=== PATIENT | male | born 1955 | race Caucasian/White ===

== ENCOUNTER 2018-03-12 06:39 | Day surgery (SDC) | payer OTHER, SELFPAY ==
--- NOTE | 2018-03-12 | PATH_ITS ---
[facility] Accession Number: [id number] . 01 Material submitted: . PART A: BIOPSY AT 65CM PART B: BIOPSY AT 25CM . 02 Diagnosis: A. Colon at 65 cm, Biopsy: Hyperplastic polyp. . B. Colon at 25 cm, Biopsy: Hyperplastic polyp. V/03/13/2018 . 02 Electronically signed: . Jacek Hilario MD, PhD, Pathologist NPI- [id number] . 01 Gross description: . Received two formalin-filled containers, both labeled with the patient's name: . A. In a container labeled BX at 65 cm, are three fragments of colmenares, soft tissue which range in size from 0.1 x 0.1 x 0.1 cm to 0.2 x 0.2 x 0.2 cm. All fragments are totally submitted in cassette A. B. In a container labeled BX at 25 cm, are two fragments of colmenares, soft tissue which range in size from less than 0.1 cm to 0.2 x 0.2 x 0.2 cm. All fragments are totally submitted in cassette B. ([id number]) /FRR . 02 Pathologist provided ICD-10: K63.5 . 02 CPT . 507674, [id number] Performed at: 01 [facility] [address], [place], [place] [id number] MD Dionicio Aleman MD Phone: [phone] Performed at: 02 [facility] [address] [place], [place] [id number] MD Chloe Mohan MD Phone: [phone]
[2018-03-12 07:10] VITALS: BMI 23.2
[2018-03-12] MEDS: SODIUM CHLORIDE 0.9% 1,000 ML 100 ML IV (07:10)
[2018-03-12 07:15] VITALS: BP 134/90; PULSE 74; RESP 20; TEMP 36.4; O2SAT 100
--- NOTE | 2018-03-12 08:15 | PM.HP.1 ---
History of Present Illness Date Patient Seen: 03/12/18 Time Patient Seen: 08:06 Chief complaint: colonoscopy [id number] Narrative: The patient is gentleman here for screening colonoscopy. Last exam was 10 years ago. No family history of colon cancer. Patient History Family & Social History Family History: Reviewed 03/12/18 by Scot Montemayor MD Social History: household members spouse Meds Home Medications Medication Instructions Recorded Confirmed Type bupropion HCl 75 mg PO QAM 03/12/18 03/12/18 History famotidine [Pepcid] 20 mg PO QAM 03/12/18 03/12/18 History omeprazole magnesium [Prilosec OTC] 20 mg PO DAILY 03/12/18 03/12/18 History Allergies Allergy/AdvReac Type Severity Reaction Status Date / Time Penicillins AdvReac Unknown Verified 03/12/18 07:52 Sulfa (Sulfonamide AdvReac Unknown Verified 03/12/18 07:52 Antibiotics) Review of Systems Review of Systems All systems reviewed & are unremarkable except as noted in HPI and below Exam Vital Signs (past 8 hours): - 03/12/18 07:15 Temperature 97.6 F Pulse Rate 74 Respiratory Rate 20 Blood Pressure 134/90 Pulse Oximetry 100 Oxygen Delivery Method Room Air Narrative Exam Narrative: No apparent distress. Lungs are clear no rales rhonchi . heart regular rate and rhythm no murmur gallop. abdomen is soft nontender without mass. Alert and oriented x3. Assessment & Plan Plan: Assessment/Plan Narrative: For screening colonoscopy. I have discussed the procedure and the rationale with the patient including risks of bleeding, perforation which would necessitate a major operation, failure to find remove all lesions and the potential to tattoo. They appeared to understand and wished to proceed.
--- NOTE | 2018-03-12 08:16 | PM.PREOP ---
Pre-operative Note Interval Note History & Physical reviewed/Exam performed by Physician: Yes Changes to H&P: No ASA Class (for procedural sedation): I
[2018-03-12] MEDS: fentaNYL 250 MCG/5 ML INJ IV (08:23)
[2018-03-12] MEDS: MIDAZOLAM 5 MG/5 ML VIAL IV (08:27)
--- NOTE | 2018-03-12 08:51 | PM.OP.ENDO ---
Operative Date/Time/Diagnoses Date of procedure: 03/12/18 Time of procedure: 08:51 Pre-op diagnosis: Screening exam Post-op diagnosis: other (Two small polyps. One at 65 cm and 1 at 25 cm. Rather large prostate) Procedure & Clinicians Study performed: Colonoscopy with cold biopsies Same procedure as scheduled: Yes Indications: Screening Surgeon: Scot Montemayor Procedure Notes SCOAP/Timeout: Performed Procedure in detail: The patient was placed in the left lateral decubitus position and underwent IV sedation directed by the surgeon consisting of fentanyl and Versed. Digital exam was remarkable for rather large prostate without dominant mass. Sphincter tone was slightly increased. The scope was inserted and advanced through the rectum into the sigmoid, descending, transverse, and ascending colon. No lesions including diverticuli were seen. The cecum was reached identified by the ileocecal valve and the appendiceal opening. The ileocecal valve was successfully cannulated. The terminal ileum was normal in appearance. The scope was gradually brought out. Two small Polyps were found. 1 was 65 cm from the anal verge and 1 was 25 cm from the anal verge. Both were biopsied and appeared to be completely removed.. The scope ultimately was retroflexed in the rectum. The appearance was remarkable for some minor scarring. The scope was removed and the patient tolerated the procedure well. Prep was good. Scope withdrawal time: Nine and 0.5 min Sedation minutes: 23 Findings: polyp (Two small) and other findings (Large prostate) Specimen(s): other (Polyps) Complications: none Recommendations: Colonscopy in 5 years (Unless these polyps are not neoplastic. In that case 10 years would be more appropriate.) Follow up: as needed Disposition: same day surgery
[2018-03-12 08:54] VITALS: BP 116/71; PULSE 78; RESP 16; TEMP 36.5; O2SAT 99
[2018-03-12 09:10] VITALS: BP 110/70; PULSE 78; RESP 16; TEMP 36.4; O2SAT 100
== END 2018-03-12 09:15 | disposition home or self-care (01) ==
PROVIDERS: Family Provider Family Medicine; PCP Family Medicine; Visit Provider Specialist
PROC: 0DJD8ZZ Inspection of Lower Intestinal Tract, Via Natural or Artificial Opening Endoscopic (ICD-10-PCS; CPT 45378; principal; 2018-03-12 07:45)
DX: Z12.11 Encounter for screening for malignant neoplasm of colon (principal); N40.0 Benign prostatic hyperplasia without lower urinary tract symptoms; K63.5 Polyp of colon
CPT/HCPCS: 45380; 99152; 99153; J2250; J3010

== ENCOUNTER 2021-03-07 12:15 | Outpatient (RCR) | payer OTHER, SELFPAY ==
--- NOTE | 2021-01-10 15:46 | PT.OIE ---
Current Diagnoses Pain in right shoulder (01/10/21) Visit Care Team Role Provider Type Waylon Morris MD Attending Provider Physician Family Provider Primary Care Provider Referring Provider Specialty: Family Practice Address: [address] [place], [address] Email: [email or web address] Physical Therapy Initial Evaluation PT-OP-A Visit Information Start: 01/06/21 16:14 Freq: Status: Active Protocol: Document 01/10/21 13:05 MB (Rec: 01/10/21 13:15 MB [id number]) Out-Patient Physical Therapy Visit Information Visit Information Visit Type Initial Evaluation Visit Note Mcguire 25 visits per year Visit Start Time 13:05 Visit Stop Time 13:39 Total Visit Minutes 34 Visit Number 1 Evaluation Information Evaluation Date 01/10/21 PT-OP-B Current Condition Start: 01/06/21 16:14 Freq: Status: Active Protocol: Document 01/10/21 13:05 MB (Rec: 01/10/21 13:15 MB [id number]) Current Condition History of Current Condition Onset Date May 2020 Current Complaints Pain in right shoulder with some movements and pain with sleeping History of Current Condition In May, pt reached back to do something with 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 He has had progressive decreasing ROM in his right shoulder as well as some decreasing strength. He is right-handed. He is favoring the arm. He is taking oral pain medication as prescribed by the doctor and using Voltaren at morning and at night. He has pain with reaching behind and up over his head. He points to right AC joint. He cannot sleep on his right side. He is sleeping on his back and left side. Pt rates pain as 4+/10 in his right shoulder. Pt has a history of torn meniscus right knee and surgery 10 years ago. He had PT for back pain 10 years ago. Pt reports two episodes of pain in his right elbow since the injury. He denies numbness and tingling. Treatment Goals Patient/Caregiver Goals To decrease pain and to improve right arm use and ROM PT-OP-C Subjective Start: 01/06/21 16:14 Freq: Status: Active Protocol: Document 01/10/21 13:05 MB (Rec: 01/10/21 13:15 MB [id number]) OP-PT Subjective Patient Comments Patient Comments See history of current condition Patient Questionnaires Quick Dash- Upper Extremity Quick Dash UE Score 26 Quick Dash UE Impairment 20 to 39% Impaired (Score 20- 39) PT-OP-J Posture/Palpation/Skin Start: 01/06/21 16:14 Freq: Status: Active Protocol: Document 01/10/21 13:05 MB (Rec: 01/10/21 15:45 MB [id number]) Posture Evaluation Comments Posture Comments Standing posture with shoes on : forward head, cervical extension position in standing , Dowager's hump, elevated shoulders, decreased thoracic kyphosis, left shoulder higher than the right and left SC joint also higher than the right, right scapula lower than the left, increased varus LEs, iliac crests grossly level. PT-OP-K Range of Motion Start: 01/06/21 16:14 Freq: Status: Active Protocol: Document 01/10/21 13:05 MB (Rec: 01/10/21 15:45 MB [id number]) Cervical Spine Range of Motion Cervical Spine Active Testing Position Standing Flexion 35 Extension 30 Rotation Left 60 Rotation Right 50 Lateral Flexion Left 20 Lateral Flexion Right 20 Shoulder Goniometric Range of Motion Shoulder Left Shoulder ROM WFL Yes Testing Position Standing Flexion 140 Extension 61 Abduction 155 Internal Rotation Behind Back (text) To T5 Comments PROM in supine with left shoulder in 90/90: limited ER to 80 deg and IR to 50 deg at least Right Shoulder ROM WFL No Testing Position Standing Flexion 130 Extension 54 Abduction 140 Internal Rotation Behind Back (text) To S1 Comments PROM in supine with right shoulder in 80 deg abduction, pt states, stop before PT can reach end-feel end-range for ER and IR and ER is 30 deg and IR is 25 deg PT-OP-M Strength Start: 01/06/21 16:14 Freq: Status: Active Protocol: Document 01/10/21 13:05 MB (Rec: 01/10/21 15:45 MB [id number]) Shoulder Strength Shoulder Manual Muscle Testing Left Flexion 5 Normal Abduction (C5) 5 Normal External Rotation 5 Normal Internal Rotation 5 Normal Right Comments Painful and guarded AROM and so MMT right shoulder deferred Elbow/Forearm Strength Elbow and Forearm Manual Muscle Testing Bilateral Flexion (C6) 5 Normal Extension (C7) 5 Normal Pronation 5 Normal Supination 5 Normal PT-OP-Q Treatments Start: 01/06/21 16:14 Freq: Status: Active Protocol: Document 01/10/21 13:05 MB (Rec: 01/10/21 13:45 MB [id number]) Self-Care/Home Management Treatment Education Patient Education Body Mechanics,Joint Protection,Pain Management, Posture Other Education Proper sleeping position with cervical support from towel roll at neck to unweight shoulder, pillow support between arms and to stop putting hands up under pillow, talk with pharmacist about how often he should be taking oral NSAID and Voltaren PT-OP-T Assessment and Plan Start: 01/06/21 16:14 Freq: Status: Active Protocol: Document 01/10/21 13:05 MB (Rec: 01/10/21 15:45 MB [id number]) Physical Therapy Assessment Rehab Potential Rehabilitation Potential Good Evaluation Complexity Number of Personal Factors/Comorbidities 1-2 Number of Body Systems Impaired 1-2 Clinical Presentation at Evaluation Evolving Impairments Impairments Activity Tolerance,Functional Activities,Functional Mobility ,Pain,Posture,ROM,Soft Tissue Mobility,Strength Other Impairments Personal factors include guarding behavior during assessment. Body systems affected include musculoskeletal and neuromuscular. Goals 5 Tooth Clerk Goal (LTG) Pt will report a 75% improvement in sleeping to improve restorative rest by . LTG Duration 8 weeks 4 Mcc Goal (LTG) Pt will present with active right shoulder IR to at least T8 to improve donning and doffiing of jacket by 03/12/21. LTG Duration 8 weeks 3 Mcc Goal (LTG) Pt will present with AROM right shoulder flexion and abduction similiar to the left to improve reaching overhead by 03/12/21. LTG Duration 8 weeks 2 Tooth Clerk Goal (LTG) Pt will perform progressive HEP with I including range of motion, postural exercises, self-massage, breathing, flexibility and strengthening exercises to decrease pain and improve right arm function by 03/12/21. LTG Duration 8 weeks 1 Impairment QuickDASH score reflects 34.09 % impairment Tooth Clerk Goal (LTG) Pt will present with an improved QuickDASH score to reflect no more than 10% impairment to improve function and quality of life by . LTG Duration 8 weeks Assessment Summary Assessment Pt is a 65 y/o male presenting with reports of right shoulder pain and he points to superolateral humerus with reaching overhead and IR. 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 Pt presents with decreased AROM, PROM and strength today. He guards passive movement by PT. Overall, PT's initial impression is a capsular-type problem. He will benefit from PT to improve range, strength, pain and function. Physical Therapy Plan Frequency and Duration Frequency of Treatment 2x/Week Duration of Treatment 8 weeks Plan of Care Start Date 01/10/21 Plan of Care End Date 03/12/21 Therapeutic Interventions Therapeutic Interventions Aquatic Therapy,Canalithic Repositioning,Home Exercise Program,Joint Mobilizations, Manual Therapy,Neuromuscular Re-education,Patient/Caregiver Education,Self-Care/Home Management,Soft Tissue Mobilization,Taping, Therapeutic Activities, Therapeutic Exercises Modalities Cold Pack/Ice Massage,Hot Packs,Ultrasound Next Visit Focus/Plan Next Note Type Treatment Note Next Visit Plan Racquet ball massage and [place] Protocol
--- NOTE | 2021-01-10 15:46 | PT.OPPOC ---
Physical, Occupational & Speech Therapy At [facility] Current Diagnoses Pain in right shoulder (01/10/21) Visit Care Team Role Provider Type Waylon Morris MD Attending Provider Physician Family Provider Primary Care Provider Referring Provider Specialty: Family Practice [address]: [place], [address] Email: [email or web address] Plan Of Care PT-OP-T Assessment and Plan Start: 01/06/21 16:14 Freq: Status: Active Protocol: Document 01/10/21 13:05 MB (Rec: 01/10/21 15:45 MB [id number]) Physical Therapy Assessment Rehab Potential Rehabilitation Potential Good Evaluation Complexity Number of Personal Factors/Comorbidities 1-2 Number of Body Systems Impaired 1-2 Clinical Presentation at Evaluation Evolving Impairments Impairments Activity Tolerance,Functional Activities,Functional Mobility ,Pain,Posture,ROM,Soft Tissue Mobility,Strength Other Impairments Personal factors include guarding behavior during assessment. Body systems affected include musculoskeletal and neuromuscular. Goals 5 Intermediate Goal (LTG) Pt will report a 75% improvement in sleeping to improve restorative rest by . LTG Duration 8 weeks 4 Logging Superintendent Goal (LTG) Pt will present with active right shoulder IR to at least T8 to improve donning and doffiing of jacket by 03/12/21. LTG Duration 8 weeks 3 Logging Superintendent Goal (LTG) Pt will present with AROM right shoulder flexion and abduction similiar to the left to improve reaching overhead by 03/12/21. LTG Duration 8 weeks 2 Intermediate Goal (LTG) Pt will perform progressive HEP with I including range of motion, postural exercises, self-massage, breathing, flexibility and strengthening exercises to decrease pain and improve right arm function by 03/12/21. LTG Duration 8 weeks 1 Impairment QuickDASH score reflects 34.09 % impairment Intermediate Goal (LTG) Pt will present with an improved QuickDASH score to reflect no more than 10% impairment to improve function and quality of life by . LTG Duration 8 weeks Assessment Summary Assessment Pt is a 65 y/o male presenting with reports of right shoulder pain and he points to superolateral humerus with reaching overhead and IR. 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 Pt presents with decreased AROM, PROM and strength today. He guards passive movement by PT. Overall, PT's initial impression is a capsular-type problem. He will benefit from PT to improve range, strength, pain and function. Physical Therapy Plan Frequency and Duration Frequency of Treatment 2x/Week Duration of Treatment 8 weeks Plan of Care Start Date 01/10/21 Plan of Care End Date 03/12/21 Therapeutic Interventions Therapeutic Interventions Aquatic Therapy,Canalithic Repositioning,Home Exercise Program,Joint Mobilizations, Manual Therapy,Neuromuscular Re-education,Patient/Caregiver Education,Self-Care/Home Management,Soft Tissue Mobilization,Taping, Therapeutic Activities, Therapeutic Exercises Modalities Cold Pack/Ice Massage,Hot Packs,Ultrasound Next Visit Focus/Plan Next Note Type Treatment Note Next Visit Plan Racquet ball massage and [place] Protocol Plan of Care Dates Plan of Care Start Date 01/10/21 Plan of Care End Date 03/12/21 Electronically Signed by: Whitney Mckenna, PT 01/10/21 2005 Please Sign and Return: I have reviewed this Plan of Care and certify that the skilled therapy services above are required to meet the patient?s needs. Physician Signature Date Printed Name and Credentials Clinical Instructor Signature Printed Name and Credentials
--- NOTE | 2021-01-14 13:45 | PT.OTN ---
Current Diagnoses Pain in right shoulder (01/14/21) Physical Therapy Treatment Note PT-OP-A Visit Information Start: 01/06/21 16:14 Freq: Status: Active Protocol: Document 01/14/21 13:03 MB (Rec: 01/14/21 13:42 MB [id number]) Out-Patient Physical Therapy Visit Information Visit Information Visit Type Treatment Note Visit Note Mcgu[facility] 25 visits per year Visit Start Time 13:03 Visit Stop Time 13:45 Total Visit Minutes 42 Visit Number 2 Evaluation Information Evaluation Date 01/10/21 PT-OP-B Current Condition Start: 01/06/21 16:14 Freq: Status: Active Protocol: Document 01/10/21 13:05 MB (Rec: 01/10/21 13:15 MB [id number]) Current Condition History of Current Condition Onset Date May 2020 Current Complaints Pain in right shoulder with some movements and pain with sleeping History of Current Condition In May, pt reached back to do something with the 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 He has had progressive decreasing ROM in his right shoulder as well as some decreasing strength. He is right-handed. He is favoring the arm. He is taking oral pain medication as prescribed by the doctor and using Voltaren at morning and at night. He has pain with reaching behind and up over his head. He points to right AC joint. He cannot sleep on his right side. He is sleeping on his back and left side. Pt rates pain as 4+/10 in his right shoulder. Pt has a history of torn meniscus right knee and surgery 10 years ago. He had PT for back pain 10 years ago. Pt reports two episodes of pain in his right elbow since the injury. He denies numbness and tingling. Treatment Goals Patient/Caregiver Goals To decrease pain and to improve right arm use and ROM PT-OP-C Subjective Start: 01/06/21 16:14 Freq: Status: Active Protocol: Document 01/14/21 13:03 MB (Rec: 01/14/21 13:42 MB [id number]) OP-PT Subjective Patient Comments Patient Comments Pt asks PT if PT thinks he has a rotator cuff issue. 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 He might have gotten injection for it and then the orthopedist gave him some exercises that he did for a year and it got better. PT-OP-J Posture/Palpation/Skin Start: 01/06/21 16:14 Freq: Status: Active Protocol: Document 01/10/21 13:05 MB (Rec: 01/10/21 15:45 MB [id number]) Posture Evaluation Comments Posture Comments Standing posture with shoes on : forward head, cervical extension position in standing , Dowager's hump, elevated shoulders, decreased thoracic kyphosis, left shoulder higher than the right and left SC joint also higher than the right, right scapula lower than the left, increased varus LEs, iliac crests grossly level. PT-OP-K Range of Motion Start: 01/06/21 16:14 Freq: Status: Active Protocol: Document 01/10/21 13:05 MB (Rec: 01/10/21 15:45 MB [id number]) Cervical Spine Range of Motion Cervical Spine Active Testing Position Standing Flexion 35 Extension 30 Rotation Left 60 Rotation Right 50 Lateral Flexion Left 20 Lateral Flexion Right 20 Shoulder Goniometric Range of Motion Shoulder Left Shoulder ROM WFL Yes Testing Position Standing Flexion 140 Extension 61 Abduction 155 Internal Rotation Behind Back (text) To T5 Comments PROM in supine with left shoulder in 90/90: limited ER to 80 deg and IR to 50 deg at least Right Shoulder ROM WFL No Testing Position Standing Flexion 130 Extension 54 Abduction 140 Internal Rotation Behind Back (text) To S1 Comments PROM in supine with right shoulder in 80 deg abduction, pt states, stop before PT can reach end-feel end-range for ER and IR and ER is 30 deg and IR is 25 deg PT-OP-M Strength Start: 01/06/21 16:14 Freq: Status: Active Protocol: Document 01/10/21 13:05 MB (Rec: 01/10/21 15:45 MB [id number]) Shoulder Strength Shoulder Manual Muscle Testing Left Flexion 5 Normal Abduction (C5) 5 Normal External Rotation 5 Normal Internal Rotation 5 Normal Right Comments Painful and guarded AROM and so MMT right shoulder deferred Elbow/Forearm Strength Elbow and Forearm Manual Muscle Testing Bilateral Flexion (C6) 5 Normal Extension (C7) 5 Normal Pronation 5 Normal Supination 5 Normal PT-OP-Q Treatments Start: 01/06/21 16:14 Freq: Status: Active Protocol: Document 01/14/21 13:03 MB (Rec: 01/14/21 13:42 MB [id number]) Cardio Equipment Upper Body Ergometer (UBE) Duration (Minutes) 10 Other 1' forward and 1' backwards Therapeutic Exercises Standing Exercises Racquet ball massage Standing Exercise Name Intrascapular STM, infraspinatus MWM, upper traps MWM Side right PT-OP-T Assessment and Plan Start: 01/06/21 16:14 Freq: Status: Active Protocol: Document 01/14/21 13:03 MB (Rec: 01/14/21 13:42 MB [id number]) Physical Therapy Assessment Rehab Potential Rehabilitation Potential Good Evaluation Complexity Number of Personal Factors/Comorbidities 1-2 Number of Body Systems Impaired 1-2 Clinical Presentation at Evaluation Evolving Impairments Impairments Activity Tolerance,Functional Activities,Functional Mobility ,Pain,Posture,ROM,Soft Tissue Mobility,Strength Other Impairments Personal factors include guarding behavior during assessment. Body systems affected include musculoskeletal and neuromuscular. Goals 5 Chaplain Goal (LTG) Pt will report a 75% improvement in sleeping to improve restorative rest by . LTG Duration 8 weeks 4 Mcfp Goal (LTG) Pt will present with active right shoulder IR to at least T8 to improve donning and doffiing of jacket by 03/12/21. LTG Duration 8 weeks 3 Chaplain Goal (LTG) Pt will present with AROM right shoulder flexion and abduction similiar to the left to improve reaching overhead by 03/12/21. LTG Duration 8 weeks 2 Mcfp Goal (LTG) Pt will perform progressive HEP with I including range of motion, postural exercises, self-massage, breathing, flexibility and strengthening exercises to decrease pain and improve right arm function by 03/12/21. LTG Duration 8 weeks 1 Impairment QuickDASH score reflects 34.09 % impairment Chaplain Goal (LTG) Pt will present with an improved QuickDASH score to reflect no more than 10% impairment to improve function and quality of life by . LTG Duration 8 weeks Assessment Summary Assessment Pt does well with UBE and self -massage today. Will con't UBE next treatment date and start lying over pool noodle vs his foam roller that he will bring. PT will start [place] protocol in two treatment dates. Physical Therapy Plan Frequency and Duration Frequency of Treatment 2x/Week Duration of Treatment 8 weeks Plan of Care Start Date 01/10/21 Plan of Care End Date 03/12/21 Therapeutic Interventions Therapeutic Interventions Aquatic Therapy,Canalithic Repositioning,Home Exercise Program,Joint Mobilizations, Manual Therapy,Neuromuscular Re-education,Patient/Caregiver Education,Self-Care/Home Management,Soft Tissue Mobilization,Taping, Therapeutic Activities, Therapeutic Exercises Modalities Cold Pack/Ice Massage,Hot Packs,Ultrasound Next Visit Focus/Plan Next Note Type Treatment Note Next Visit Plan Please limit number of exercises, focus on quality and adding in slowly. UBE, progression will be lying over pool noodle (he will also bring in his own foam roller), pect stretch on pool noodle, AROM, posterior capsule stretch on pool noodle and open book [place] Protocol
--- NOTE | 2021-01-17 15:59 | PT.OTN ---
Addendum entered and electronically signed by Neva Sims PTA 01/17/21 16:05: Pt brought lrg noodle and same melendez full length foam roller. Instroduced noodle use today, and recommended to continue to bring to PT with handouts, can leave foam roller at home and can use PT dept's when progress to. Verbalized understanding. Original Note: Current Diagnoses Pain in right shoulder (01/17/21) Physical Therapy Treatment Note PT-OP-A Visit Information Start: 01/06/21 16:14 Freq: Status: Active Protocol: Document 01/17/21 12:15 ER (Rec: 01/17/21 13:00 ER [id number]) Out-Patient Physical Therapy Visit Information Visit Information Visit Type Treatment Note Visit Note [facility]LOE [facility] lead treatment and provided education under direct supervision and instruction of ANA Hooks. 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 He has had progressive decreasing ROM in his right shoulder as well as some decreasing strength. He is right-handed. He is favoring the arm. He is taking oral pain medication as prescribed by the doctor and using Voltaren at morning and at night. He has pain with reaching behind and up over his head. He points to right AC joint. He cannot sleep on his right side. He is sleeping on his back and left side. Pt rates pain as 4+/10 in his right shoulder. Pt has a history of torn meniscus right knee and surgery 10 years ago. He had PT for back pain 10 years ago. Pt reports two episodes of pain in his right elbow since the injury. He denies numbness and tingling. Treatment Goals Patient/Caregiver Goals To decrease pain and to improve right arm use and ROM PT-OP-C Subjective Start: 01/06/21 16:14 Freq: Status: Active Protocol: Document 01/17/21 12:15 ER (Rec: 01/17/21 13:00 ER [id number]) OP-PT Subjective Patient Comments Patient Comments Pt said he feels like therapy is working as he has had less pain at the end of R shld ROM. Still has pain at night in R shoulder from sleeping position, so doesn't sleep on his right side. Said that racquetball in sock has been helpful for self massage. PT-OP-J Posture/Palpation/Skin Start: 01/06/21 16:14 Freq: Status: Active Protocol: Document 01/10/21 13:05 MB (Rec: 01/10/21 15:45 MB [id number]) Posture Evaluation Comments Posture Comments Standing posture with shoes on : forward head, cervical extension position in standing , Dowager's hump, elevated shoulders, decreased thoracic kyphosis, left shoulder higher than the right and left SC joint also higher than the right, right scapula lower than the left, increased varus LEs, iliac crests grossly level. PT-OP-K Range of Motion Start: 01/06/21 16:14 Freq: Status: Active Protocol: Document 01/10/21 13:05 MB (Rec: 01/10/21 15:45 MB [id number]) Cervical Spine Range of Motion Cervical Spine Active Testing Position Standing Flexion 35 Extension 30 Rotation Left 60 Rotation Right 50 Lateral Flexion Left 20 Lateral Flexion Right 20 Shoulder Goniometric Range of Motion Shoulder Left Shoulder ROM WFL Yes Testing Position Standing Flexion 140 Extension 61 Abduction 155 Internal Rotation Behind Back (text) To T5 Comments PROM in supine with left shoulder in 90/90: limited ER to 80 deg and IR to 50 deg at least Right Shoulder ROM WFL No Testing Position Standing Flexion 130 Extension 54 Abduction 140 Internal Rotation Behind Back (text) To S1 Comments PROM in supine with right shoulder in 80 deg abduction, pt states, stop before PT can reach end-feel end-range for ER and IR and ER is 30 deg and IR is 25 deg PT-OP-M Strength Start: 01/06/21 16:14 Freq: Status: Active Protocol: Document 01/10/21 13:05 MB (Rec: 01/10/21 15:45 MB [id number]) Shoulder Strength Shoulder Manual Muscle Testing Left Flexion 5 Normal Abduction (C5) 5 Normal External Rotation 5 Normal Internal Rotation 5 Normal Right Comments Painful and guarded AROM and so MMT right shoulder deferred Elbow/Forearm Strength Elbow and Forearm Manual Muscle Testing Bilateral Flexion (C6) 5 Normal Extension (C7) 5 Normal Pronation 5 Normal Supination 5 Normal PT-OP-Q Treatments Start: 01/06/21 16:14 Freq: Status: Active Protocol: Document 01/17/21 12:15 ER (Rec: 01/17/21 13:00 ER [id number]) Cardio Equipment Upper Body Ergometer (UBE) Duration (Minutes) 10 RPM 50 Seat Position 12 Other 1' forward and 1' backwards Therapeutic Exercises Supine Exercises Pec Stretch Supine Exercise Name on pool noodle added to HEP Side bilateral Resistance AROM Equipment Used pool noodle Reps/Minutes 2 min T,W, half X Supine Exercise Name flexion, H ABD, W, half X, added to HEP Side bilateral Equipment Used pool noodle Reps/Minutes 10x ea Comments R shldr pain at end ROM flexion, HABD, adj to reduced range resolved pain Manual Therapy Treatment Soft Tissue Mobilization R Shoulder Body Location infraspinatus, posterior Delt, upper traps, pec minor, pec major, lats Mobilization Type Myofascial Release, Oscillations,Strumming, Sustained Pressure,Trigger Point Release Intensity/Depth Moderate Body Position Supine/ Sidelying Comments Pos deltoid, infraspinatus crossing GH joint location identified as a good spot by Pt. Palpated moderate tightness of musculature, but no areas of pressure produced pain. Pt reported shoulder felt looser post tx. Joint Mobilizations R shoulder Joint R GH Direction AP, PA, INF Grade II Body Position Supine Reps/Duration 10 min Comments Mobilized joint AP, PA, and INf with no pain PA and INF. Pt noted discomfort AP at end of ROM. Modified to less range and pain resolved. Pt expressed shoulder feeling looser post tx. PT-OP-T Assessment and Plan Start: 01/06/21 16:14 Freq: Status: Active Protocol: Document 01/17/21 12:15 ER (Rec: 01/17/21 13:00 ER [id number]) Physical Therapy Assessment Goals 5 Locomotive Electrician Goal (LTG) Pt will report a 75% improvement in sleeping to improve restorative rest by . LTG Duration 8 weeks 4 Residential Goal (LTG) Pt will present with active right shoulder IR to at least T8 to improve donning and doffiing of jacket by 03/12/21. LTG Duration 8 weeks 3 Locomotive Electrician Goal (LTG) Pt will present with AROM right shoulder flexion and abduction similiar to the left to improve reaching overhead by 03/12/21. LTG Duration 8 weeks 2 Residential Goal (LTG) Pt will perform progressive HEP with I including range of motion, postural exercises, self-massage, breathing, flexibility and strengthening exercises to decrease pain and improve right arm function by 03/12/21. LTG Duration 8 weeks 1 Impairment QuickDASH score reflects 34.09 % impairment Residential Goal (LTG) Pt will present with an improved QuickDASH score to reflect no more than 10% impairment to improve function and quality of life by . LTG Duration 8 weeks Assessment Summary Assessment Initiated pec stretch, I,T,W and half X ex on pool noodle on yoga mat on floor. Pt cued for UE positioning, TA engagement, but demonstrated good pacing and understanding of exercises. Noted ROM R<L of GH joint. Pt c/o discomfort at end of ROM R shoulder in all directions. Modified to less ROM and pain resolved. Pt responded well to manual therapy, with no GH pain noted except with a end of ROM AP Grade II glided. Adjusted depth of glide shallower and pain resolved. Pt reported shoulder felt looser post manual tx. Physical Therapy Plan Frequency and Duration Frequency of Treatment 2x/Week Duration of Treatment 8 weeks Plan of Care Start Date 01/10/21 Plan of Care End Date 03/12/21 Therapeutic Interventions Therapeutic Interventions Aquatic Therapy,Canalithic Repositioning,Home Exercise Program,Joint Mobilizations, Manual Therapy,Neuromuscular Re-education,Patient/Caregiver Education,Self-Care/Home Management,Soft Tissue Mobilization,Taping, Therapeutic Activities, Therapeutic Exercises Modalities Cold Pack/Ice Massage,Hot Packs,Ultrasound Next Visit Focus/Plan Next Note Type Treatment Note Next Visit Plan Review HEP. Progress as detailed below. Pt has same foam rollers as in clinic. Advised that he does not need to bring them in. Please limit number of exercises, focus on quality and adding in slowly. UBE, progression will be lying over pool noodle (he will also bring in his own foam roller), pect stretch on pool noodle, AROM, posterior capsule stretch on pool noodle and open book [place] Protocol
--- NOTE | 2021-01-19 13:44 | PT.OTN ---
Current Diagnoses Pain in right shoulder (01/19/21) Physical Therapy Treatment Note PT-OP-A Visit Information Start: 01/06/21 16:14 Freq: Status: Active Protocol: Document 01/19/21 12:58 MB (Rec: 01/19/21 13:44 MB [id number]) Out-Patient Physical Therapy Visit Information Visit Information Visit Type Treatment Note Visit Note [place] 25 visits per year Visit Start Time 12:58 Visit Stop Time 13:43 Total Visit Minutes 45 Visit Number 4 Number of STATISTICAL CONSULTANT Visits 0 PT-OP-B Current Condition Start: 01/06/21 16:14 Freq: Status: Active Protocol: Document 01/10/21 13:05 MB (Rec: 01/10/21 13:15 MB [id number]) Current Condition History of Current Condition Onset Date May 2020 Current Complaints Pain in right shoulder with some movements and pain with sleeping History of Current Condition In May, pt reached back to do something with the dog who was in the backseat 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 He has had progressive decreasing ROM in his right shoulder as well as some decreasing strength. He is right-handed. He is favoring the arm. He is taking oral pain medication as prescribed by the doctor and using Voltaren at morning and at night. He has pain with reaching behind and up over his head. He points to right AC joint. He cannot sleep on his right side. He is sleeping on his back and left side. Pt rates pain as 4+/10 in his right shoulder. Pt has a history of torn meniscus right knee and surgery 10 years ago. He had PT for back pain 10 years ago. Pt reports two episodes of pain in his right elbow since the injury. He denies numbness and tingling. Treatment Goals Patient/Caregiver Goals To decrease pain and to improve right arm use and ROM PT-OP-C Subjective Start: 01/06/21 16:14 Freq: Status: Active Protocol: Document 01/19/21 12:58 MB (Rec: 01/19/21 13:44 MB [id number]) OP-PT Subjective Patient Comments Patient Comments Pt feels cautiously optimistic about shoulder exercises and they are helpful. He might be seeing some improvements in range of motion. He is sleeping better. PT-OP-J Posture/Palpation/Skin Start: 01/06/21 16:14 Freq: Status: Active Protocol: Document 01/10/21 13:05 MB (Rec: 01/10/21 15:45 MB [id number]) Posture Evaluation Comments Posture Comments Standing posture with shoes on : forward head, cervical extension position in standing , Dowager's hump, elevated shoulders, decreased thoracic kyphosis, left shoulder higher than the right and left SC joint also higher than the right, right scapula lower than the left, increased varus LEs, iliac crests grossly level. PT-OP-K Range of Motion Start: 01/06/21 16:14 Freq: Status: Active Protocol: Document 01/10/21 13:05 MB (Rec: 01/10/21 15:45 MB [id number]) Cervical Spine Range of Motion Cervical Spine Active Testing Position Standing Flexion 35 Extension 30 Rotation Left 60 Rotation Right 50 Lateral Flexion Left 20 Lateral Flexion Right 20 Shoulder Goniometric Range of Motion Shoulder Left Shoulder ROM WFL Yes Testing Position Standing Flexion 140 Extension 61 Abduction 155 Internal Rotation Behind Back (text) To T5 Comments PROM in supine with left shoulder in 90/90: limited ER to 80 deg and IR to 50 deg at least Right Shoulder ROM WFL No Testing Position Standing Flexion 130 Extension 54 Abduction 140 Internal Rotation Behind Back (text) To S1 Comments PROM in supine with right shoulder in 80 deg abduction, pt states, stop before PT can reach end-feel end-range for ER and IR and ER is 30 deg and IR is 25 deg PT-OP-M Strength Start: 01/06/21 16:14 Freq: Status: Active Protocol: Document 01/10/21 13:05 MB (Rec: 01/10/21 15:45 MB [id number]) Shoulder Strength Shoulder Manual Muscle Testing Left Flexion 5 Normal Abduction (C5) 5 Normal External Rotation 5 Normal Internal Rotation 5 Normal Right Comments Painful and guarded AROM and so MMT right shoulder deferred Elbow/Forearm Strength Elbow and Forearm Manual Muscle Testing Bilateral Flexion (C6) 5 Normal Extension (C7) 5 Normal Pronation 5 Normal Supination 5 Normal PT-OP-Q Treatments Start: 01/06/21 16:14 Freq: Status: Active Protocol: Document 01/19/21 12:58 MB (Rec: 01/19/21 13:44 MB [id number]) Cardio Equipment Upper Body Ergometer (UBE) Duration (Minutes) 10 Other 1' forward and 1' backwards Therapeutic Exercises Supine Exercises Posterior capsule stretch Side right Comments Performed in supine today and pt will perform on pool noodle at home Manual Therapy Treatment Other Other Manual Treatments [place] protocol for right shoulder and pt tolerates very well for the first time. PA mobs at posterior middle and inferior joint line are the most tight and cause the most discomfort. ER in prone is self-limited by pt in this position. Of note, his infraspinatus has muscle twitching at the GH with mobs and it has been guarding. STM right pect minor after treatment. SC and AC recoil B with coordinated breathing PT-OP-T Assessment and Plan Start: 01/06/21 16:14 Freq: Status: Active Protocol: Document 01/19/21 12:58 MB (Rec: 01/19/21 13:44 MB [id number]) Physical Therapy Assessment Rehab Potential Rehabilitation Potential Good Evaluation Complexity Number of Personal Factors/Comorbidities 1-2 Number of Body Systems Impaired 1-2 Clinical Presentation at Evaluation Evolving Impairments Impairments Activity Tolerance,Functional Activities,Functional Mobility ,Pain,Posture,ROM,Soft Tissue Mobility,Strength Other Impairments Personal factors include guarding behavior during assessment. Body systems affected include musculoskeletal and neuromuscular. Goals 5 High Lift Mule Operator Goal (LTG) Pt will report a 75% improvement in sleeping to improve restorative rest by . LTG Duration 8 weeks 4 High Lift Mule Operator Goal (LTG) Pt will present with active right shoulder IR to at least T8 to improve donning and doffiing of jacket by 03/12/21. LTG Duration 8 weeks 3 High Lift Mule Operator Goal (LTG) Pt will present with AROM right shoulder flexion and abduction similiar to the left to improve reaching overhead by 03/12/21. LTG Duration 8 weeks 2 High Lift Mule Operator Goal (LTG) Pt will perform progressive HEP with I including range of motion, postural exercises, self-massage, breathing, flexibility and strengthening exercises to decrease pain and improve right arm function by 03/12/21. LTG Duration 8 weeks 1 Impairment QuickDASH score reflects 34.09 % impairment Skilled Nursing Goal (LTG) Pt will present with an improved QuickDASH score to reflect no more than 10% impairment to improve function and quality of life by . LTG Duration 8 weeks Assessment Summary Assessment [place] Protocol right shoulder today and pt tolerates well. His right infraspinatus guards with PA GH mobs and has some twitching . Pect minor is really tight. Con't progression Physical Therapy Plan Frequency and Duration Frequency of Treatment 2x/Week Duration of Treatment 8 weeks Plan of Care Start Date 01/10/21 Plan of Care End Date 03/12/21 Therapeutic Interventions Therapeutic Interventions Aquatic Therapy,Canalithic Repositioning,Home Exercise Program,Joint Mobilizations, Manual Therapy,Neuromuscular Re-education,Patient/Caregiver Education,Self-Care/Home Management,Soft Tissue Mobilization,Taping, Therapeutic Activities, Therapeutic Exercises Modalities Cold Pack/Ice Massage,Hot Packs,Ultrasound Next Visit Focus/Plan Next Note Type Treatment Note Next Visit Plan [place] Protocol, open book Manual work to include first rib isometric, PA mobs and recoild thoracic spine and ed in pect minor stretch on pool noodle
--- NOTE | 2021-01-24 14:30 | PT.OTN ---
Current Diagnoses Pain in right shoulder (01/24/21) Physical Therapy Treatment Note PT-OP-A Visit Information Start: 01/06/21 16:14 Freq: Status: Active Protocol: Document 01/24/21 13:50 SP (Rec: 01/24/21 16:04 SP [id number]) Out-Patient Physical Therapy Visit Information Visit Information Visit Type Treatment Note Visit Note [place] 25 visits per year Visit Start Time 13:50 Visit Stop Time 14:30 Total Visit Minutes 40 Visit Number 5 Number of PADDER CUSHION Visits 1 Evaluation Information Evaluation Date 01/10/21 PT-OP-B Current Condition Start: 01/06/21 16:14 Freq: Status: Active Protocol: Document 01/10/21 13:05 MB (Rec: 01/10/21 13:15 MB [id number]) Current Condition History of Current Condition Onset Date May 2020 Current Complaints Pain in right shoulder with some movements and pain with sleeping History of Current Condition In May, pt reached back to do something with the 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 He has had progressive decreasing ROM in his right shoulder as well as some decreasing strength. He is right-handed. He is favoring the arm. He is taking oral pain medication as prescribed by the doctor and using Voltaren at morning and at night. He has pain with reaching behind and up over his head. He points to right AC joint. He cannot sleep on his right side. He is sleeping on his back and left side. Pt rates pain as 4+/10 in his right shoulder. Pt has a history of torn meniscus right knee and surgery 10 years ago. He had PT for back pain 10 years ago. Pt reports two episodes of pain in his right elbow since the injury. He denies numbness and tingling. Treatment Goals Patient/Caregiver Goals To decrease pain and to improve right arm use and ROM PT-OP-C Subjective Start: 01/06/21 16:14 Freq: Status: Active Protocol: Document 01/24/21 13:50 SP (Rec: 01/24/21 16:04 SP [id number]) OP-PT Subjective Patient Comments Patient Comments Pt states each day incrimentally better, able to sleep through the night last night approx 8 hrs but still can't sleep on R shld. No adverse affects to [place] Protocol, did't find significant ROM changes. Pt states arms R shld not touching floor yet during HEP over noodle yet but states seeing gains. He states did do the stretching and self masssge with ball on wall today. Patient Reported Progress Improving PT-OP-J Posture/Palpation/Skin Start: 01/06/21 16:14 Freq: Status: Active Protocol: Document 01/10/21 13:05 MB (Rec: 01/10/21 15:45 MB [id number]) Posture Evaluation Comments Posture Comments Standing posture with shoes on : forward head, cervical extension position in standing , Dowager's hump, elevated shoulders, decreased thoracic kyphosis, left shoulder higher than the right and left SC joint also higher than the right, right scapula lower than the left, increased varus LEs, iliac crests grossly level. PT-OP-K Range of Motion Start: 01/06/21 16:14 Freq: Status: Active Protocol: Document 01/10/21 13:05 MB (Rec: 01/10/21 15:45 MB [id number]) Cervical Spine Range of Motion Cervical Spine Active Testing Position Standing Flexion 35 Extension 30 Rotation Left 60 Rotation Right 50 Lateral Flexion Left 20 Lateral Flexion Right 20 Shoulder Goniometric Range of Motion Shoulder Left Shoulder ROM WFL Yes Testing Position Standing Flexion 140 Extension 61 Abduction 155 Internal Rotation Behind Back (text) To T5 Comments PROM in supine with left shoulder in 90/90: limited ER to 80 deg and IR to 50 deg at least Right Shoulder ROM WFL No Testing Position Standing Flexion 130 Extension 54 Abduction 140 Internal Rotation Behind Back (text) To S1 Comments PROM in supine with right shoulder in 80 deg abduction, pt states, stop before PT can reach end-feel end-range for ER and IR and ER is 30 deg and IR is 25 deg PT-OP-M Strength Start: 01/06/21 16:14 Freq: Status: Active Protocol: Document 01/10/21 13:05 MB (Rec: 01/10/21 15:45 MB [id number]) Shoulder Strength Shoulder Manual Muscle Testing Left Flexion 5 Normal Abduction (C5) 5 Normal External Rotation 5 Normal Internal Rotation 5 Normal Right Comments Painful and guarded AROM and so MMT right shoulder deferred Elbow/Forearm Strength Elbow and Forearm Manual Muscle Testing Bilateral Flexion (C6) 5 Normal Extension (C7) 5 Normal Pronation 5 Normal Supination 5 Normal PT-OP-Q Treatments Start: 01/06/21 16:14 Freq: Status: Active Protocol: Document 01/24/21 13:50 SP (Rec: 01/24/21 16:04 SP [id number]) Cardio Equipment Upper Body Ergometer (UBE) Duration (Minutes) 10 RPM 60 Other 1' forward and 1' backwards Therapeutic Exercises Supine Exercises thoracic ext over roller Supine Exercise Name ext then rolling Reps/Minutes 1 min lower ribcage to shld blades Comments good feedback response Posterior capsule stretch Supine Exercise Name HEp Review Side right Reps/Minutes 30 hold Comments Performed in supine today and pt will perform on pool noodle at home Pec Stretch Supine Exercise Name HEP review Side bilateral Resistance AROM Equipment Used floor> foam roller Reps/Minutes x5 reps each surface Comments cued TA draw in awareness of [place] range T,W, half X Supine Exercise Name flexion, H ABD, W hols then small range, half X, added to HEP Side bilateral Equipment Used floor x5 each > over foam roller x10 each Comments R distal teres/bicend ROM flexion, HABD, 1/3 x Standing Exercises bicep stretch Side right Reps/Minutes 30sec Comments good feedback, recheck next tx if needed and give HO for HEP Manual Therapy Treatment Soft Tissue Mobilization R Shoulder Body Location infraspinatus, posterior Delt, lats, subscap, Teres Minor Mobilization Type Myofascial Release,Strumming, Sustained Pressure,Trigger Point Release Intensity/Depth Moderate Body Position Supine foam roller Comments Pos deltoid, infraspinatus crossing GH joint location identified as a good spot by Pt. Palpated moderate tightness of musculature, but no areas of pressure produced pain. Pt reported shoulder felt looser post tx. PT-OP-T Assessment and Plan Start: 01/06/21 16:14 Freq: Status: Active Protocol: Document 01/24/21 13:50 SP (Rec: 01/24/21 16:04 SP [id number]) Physical Therapy Assessment Goals 5 Longterm Goal (LTG) Pt will report a 75% improvement in sleeping to improve restorative rest by . LTG Duration 8 weeks 4 Longterm Goal (LTG) Pt will present with active right shoulder IR to at least T8 to improve donning and doffiing of jacket by 03/12/21. LTG Duration 8 weeks 3 Finishing Tunnel Operator Goal (LTG) Pt will present with AROM right shoulder flexion and abduction similiar to the left to improve reaching overhead by 03/12/21. LTG Duration 8 weeks 2 Finishing Tunnel Operator Goal (LTG) Pt will perform progressive HEP with I including range of motion, postural exercises, self-massage, breathing, flexibility and strengthening exercises to decrease pain and improve right arm function by 03/12/21. LTG Duration 8 weeks 1 Impairment QuickDASH score reflects 34.09 % impairment Finishing Tunnel Operator Goal (LTG) Pt will present with an improved QuickDASH score to reflect no more than 10% impairment to improve function and quality of life by . LTG Duration 8 weeks Assessment Summary Assessment Pt good feedback response to manual with ability to progress into futher HABD and scaption (1/2 X) HEP reivew with reducation in bicep/ tricep tension end feel twinges. Pt demonstrates almost //forearms during W HEP able to move small range. Initiated R shld IR across opposite pelvis using other hand. Gave HO assimulation and next tx can progress moving up trunk towel over shld support, improved response and understanding proper form, no chicken wing. Physical Therapy Plan Frequency and Duration Frequency of Treatment 2x/Week Duration of Treatment 8 weeks Plan of Care Start Date 01/10/21 Plan of Care End Date 03/12/21 Therapeutic Interventions Therapeutic Interventions Aquatic Therapy,Canalithic Repositioning,Home Exercise Program,Joint Mobilizations, Manual Therapy,Neuromuscular Re-education,Patient/Caregiver Education,Self-Care/Home Management,Soft Tissue Mobilization,Taping, Therapeutic Activities, Therapeutic Exercises Modalities Cold Pack/Ice Massage,Hot Packs,Ultrasound Next Visit Focus/Plan Next Note Type Treatment Note Next Visit Plan Assess response to manual STMs , HEP review over foam roller. recheck R shld IR. POC: [place] Protocol, open book Manual work to include first rib isometric, PA mobs and recoild thoracic spine and ed in pect minor stretch on pool noodle
--- NOTE | 2021-01-27 13:46 | PT.OTN ---
Addendum entered and electronically signed by Neva Sims, BROKER ASSISTANT 01/27/21 16:18: Forgot to give cross body stretch HO, he was already doing self, just reviewed form and appropriate- good results. Original Note: Current Diagnoses Pain in right shoulder (01/27/21) Physical Therapy Treatment Note PT-OP-A Visit Information Start: 01/06/21 16:14 Freq: Status: Active Protocol: Document 01/27/21 13:01 SP (Rec: 01/27/21 16:17 SP [id number]) Out-Patient Physical Therapy Visit Information Visit Information Visit Type Treatment Note Visit Note [place] 25 visits per year R shld AROM pre> post manual: FF 138* > 147* ABD 151*> 162* ER 91* IR behind back T12> T11 Visit Start Time 13:01 Visit Stop Time 13:46 Total Visit Minutes 45 Visit Number 6 Number of BROKER ASSISTANT Visits 2 Evaluation Information Evaluation Date 01/10/21 PT-OP-B Current Condition Start: 01/06/21 16:14 Freq: Status: Active Protocol: Document 01/10/21 13:05 MB (Rec: 01/10/21 13:15 MB [id number]) Current Condition History of Current Condition Onset Date May 2020 Current Complaints Pain in right shoulder with some movements and pain with sleeping History of Current Condition In May, pt reached back to do something with 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 He has had progressive decreasing ROM in his right shoulder as well as some decreasing strength. He is right-handed. He is favoring the arm. He is taking oral pain medication as prescribed by the doctor and using Voltaren at morning and at night. He has pain with reaching behind and up over his head. He points to right AC joint. He cannot sleep on his right side. He is sleeping on his back and left side. Pt rates pain as 4+/10 in his right shoulder. Pt has a history of torn meniscus right knee and surgery 10 years ago. He had PT for back pain 10 years ago. Pt reports two episodes of pain in his right elbow since the injury. He denies numbness and tingling. Treatment Goals Patient/Caregiver Goals To decrease pain and to improve right arm use and ROM PT-OP-C Subjective Start: 01/06/21 16:14 Freq: Status: Active Protocol: Document 01/27/21 13:01 SP (Rec: 01/27/21 16:17 SP [id number]) OP-PT Subjective Patient Comments Patient Comments Pt reports AROM getting better still twinges posterior shld and using ball on wall which helpful, discomfort more whenr reaching back rotational movement. Patient Reported Progress Improving PT-OP-J Posture/Palpation/Skin Start: 01/06/21 16:14 Freq: Status: Active Protocol: Document 01/10/21 13:05 MB (Rec: 01/10/21 15:45 MB [id number]) Posture Evaluation Comments Posture Comments Standing posture with shoes on : forward head, cervical extension position in standing , Dowager's hump, elevated shoulders, decreased thoracic kyphosis, left shoulder higher than the right and left SC joint also higher than the right, right scapula lower than the left, increased varus LEs, iliac crests grossly level. PT-OP-K Range of Motion Start: 01/06/21 16:14 Freq: Status: Active Protocol: Document 01/10/21 13:05 MB (Rec: 01/10/21 15:45 MB [id number]) Cervical Spine Range of Motion Cervical Spine Active Testing Position Standing Flexion 35 Extension 30 Rotation Left 60 Rotation Right 50 Lateral Flexion Left 20 Lateral Flexion Right 20 Shoulder Goniometric Range of Motion Shoulder Left Shoulder ROM WFL Yes Testing Position Standing Flexion 140 Extension 61 Abduction 155 Internal Rotation Behind Back (text) To T5 Comments PROM in supine with left shoulder in 90/90: limited ER to 80 deg and IR to 50 deg at least Right Shoulder ROM WFL No Testing Position Standing Flexion 130 Extension 54 Abduction 140 Internal Rotation Behind Back (text) To S1 Comments PROM in supine with right shoulder in 80 deg abduction, pt states, stop before PT can reach end-feel end-range for ER and IR and ER is 30 deg and IR is 25 deg PT-OP-M Strength Start: 01/06/21 16:14 Freq: Status: Active Protocol: Document 01/10/21 13:05 MB (Rec: 01/10/21 15:45 MB [id number]) Shoulder Strength Shoulder Manual Muscle Testing Left Flexion 5 Normal Abduction (C5) 5 Normal External Rotation 5 Normal Internal Rotation 5 Normal Right Comments Painful and guarded AROM and so MMT right shoulder deferred Elbow/Forearm Strength Elbow and Forearm Manual Muscle Testing Bilateral Flexion (C6) 5 Normal Extension (C7) 5 Normal Pronation 5 Normal Supination 5 Normal PT-OP-Q Treatments Start: 01/06/21 16:14 Freq: Status: Active Protocol: Document 01/27/21 13:01 SP (Rec: 01/27/21 16:17 SP [id number]) Therapeutic Exercises Standing Exercises cross body stretch Standing Exercise Name self HEP stretch review Side right Reps/Minutes hold 20 sec x3 Comments good feedback, states does self with racqueball roll wall over post deltoid Racquet ball massage Standing Exercise Name Intrascapular STM, infraspinatus MWM, posterior deltoid Side right Manual Therapy Treatment Other Other Manual Treatments [place] protocol for right shoulder and pt tolerates very well for the secend time. PA mobs and later STMs posterior capsule most tightness. ER in prone is self-limited by pt in this position. guarding. STM right posterior deltoid, infraspinatus after treatment improved tightness. Self-Care/Home Management Treatment Education Patient Education Body Mechanics,Home Exercise Program,Pain Management Other Education Extra time spent on anatomy education and scapular complex mechanics alignment with stability support and still allow mobility painfree end range. Better understanding how pain and loss of ROM can happen. Initiated posterior capsule cross body stretch R shld, good response and compliments STMs w/ ball wall. PT-OP-T Assessment and Plan Start: 01/06/21 16:14 Freq: Status: Active Protocol: Document 01/27/21 13:01 SP (Rec: 01/27/21 16:17 SP [id number]) Physical Therapy Assessment Goals 5 Snf Goal (LTG) Pt will report a 75% improvement in sleeping to improve restorative rest by . LTG Duration 8 weeks 4 Snf Goal (LTG) Pt will present with active right shoulder IR to at least T8 to improve donning and doffiing of jacket by 03/12/21. LTG Duration 8 weeks 3 Snf Goal (LTG) Pt will present with AROM right shoulder flexion and abduction similiar to the left to improve reaching overhead by 03/12/21. LTG Duration 8 weeks 2 Dye Tub Tender Goal (LTG) Pt will perform progressive HEP with I including range of motion, postural exercises, self-massage, breathing, flexibility and strengthening exercises to decrease pain and improve right arm function by 03/12/21. LTG Duration 8 weeks 1 Impairment QuickDASH score reflects 34.09 % impairment Dye Tub Tender Goal (LTG) Pt will present with an improved QuickDASH score to reflect no more than 10% impairment to improve function and quality of life by . LTG Duration 8 weeks Assessment Summary Assessment Pt making gains in AROM from treatment to treatment and compliant with self maual and AROM and progressing into start strengthening over foam roller. Improves decrease pain posterior R shld post manual and pleased with data gains in ROM pre> end tx. Physical Therapy Plan Frequency and Duration Frequency of Treatment 2x/Week Duration of Treatment 8 weeks Plan of Care Start Date 01/10/21 Plan of Care End Date 03/12/21 Therapeutic Interventions Therapeutic Interventions Aquatic Therapy,Canalithic Repositioning,Home Exercise Program,Joint Mobilizations, Manual Therapy,Neuromuscular Re-education,Patient/Caregiver Education,Self-Care/Home Management,Soft Tissue Mobilization,Taping, Therapeutic Activities, Therapeutic Exercises Modalities Cold Pack/Ice Massage,Hot Packs,Ultrasound Next Visit Focus/Plan Next Note Type Treatment Note Next Visit Plan Assess response to manual STMs , HEP review over foam roller. recheck R shld IR. Progress standing ROM and intruduce resistance if able. POC: [place] Protocol, open book Manual work to include first rib isometric, PA mobs and recoild thoracic spine and ed in pect minor stretch on pool noodle
--- NOTE | 2021-02-01 13:47 | PT.OTN ---
Current Diagnoses Pain in right shoulder (02/01/21) Physical Therapy Treatment Note PT-OP-A Visit Information Start: 01/06/21 16:14 Freq: Status: Active Protocol: Document 02/01/21 13:02 SP (Rec: 02/01/21 16:04 SP [id number]) Out-Patient Physical Therapy Visit Information Visit Information Visit Type Treatment Note Visit Note Mcguire 25 visits per year Visit Start Time 13:02 Visit Stop Time 13:47 Total Visit Minutes 45 Visit Number 7 Number of BEAMER HAND Visits 3 Evaluation Information Evaluation Date 01/10/21 PT-OP-B Current Condition Start: 01/06/21 16:14 Freq: Status: Active Protocol: Document 01/10/21 13:05 MB (Rec: 01/10/21 13:15 MB [id number]) Current Condition History of Current Condition Onset Date May 2020 Current Complaints Pain in right shoulder with some movements and pain with sleeping History of Current Condition In May, pt reached back to do something with the dog who was in the backseat 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 He has had progressive decreasing ROM in his right shoulder as well as some decreasing strength. He is right-handed. He is favoring the arm. He is taking oral pain medication as prescribed by the doctor and using Voltaren at morning and at night. He has pain with reaching behind and up over his head. He points to right AC joint. He cannot sleep on his right side. He is sleeping on his back and left side. Pt rates pain as 4+/10 in his right shoulder. Pt has a history of torn meniscus right knee and surgery 10 years ago. He had PT for back pain 10 years ago. Pt reports two episodes of pain in his right elbow since the injury. He denies numbness and tingling. Treatment Goals Patient/Caregiver Goals To decrease pain and to improve right arm use and ROM PT-OP-C Subjective Start: 01/06/21 16:14 Freq: Status: Active Protocol: Document 02/01/21 13:02 SP (Rec: 02/01/21 16:04 SP [id number]) OP-PT Subjective Patient Comments Patient Comments Pt reports seeing improving incrimental improvements in R shld FF, ABD, IR ROM, but still gets pain at end range FF, ABD 7/10 posterior shld and medial elbow. Patient Reported Progress Improving PT-OP-J Posture/Palpation/Skin Start: 01/06/21 16:14 Freq: Status: Active Protocol: Document 01/10/21 13:05 MB (Rec: 01/10/21 15:45 MB [id number]) Posture Evaluation Comments Posture Comments Standing posture with shoes on : forward head, cervical extension position in standing , Dowager's hump, elevated shoulders, decreased thoracic kyphosis, left shoulder higher than the right and left SC joint also higher than the right, right scapula lower than the left, increased varus LEs, iliac crests grossly level. PT-OP-K Range of Motion Start: 01/06/21 16:14 Freq: Status: Active Protocol: Document 01/10/21 13:05 MB (Rec: 01/10/21 15:45 MB [id number]) Cervical Spine Range of Motion Cervical Spine Active Testing Position Standing Flexion 35 Extension 30 Rotation Left 60 Rotation Right 50 Lateral Flexion Left 20 Lateral Flexion Right 20 Shoulder Goniometric Range of Motion Shoulder Left Shoulder ROM WFL Yes Testing Position Standing Flexion 140 Extension 61 Abduction 155 Internal Rotation Behind Back (text) To T5 Comments PROM in supine with left shoulder in 90/90: limited ER to 80 deg and IR to 50 deg at least Right Shoulder ROM WFL No Testing Position Standing Flexion 130 Extension 54 Abduction 140 Internal Rotation Behind Back (text) To S1 Comments PROM in supine with right shoulder in 80 deg abduction, pt states, stop before PT can reach end-feel end-range for ER and IR and ER is 30 deg and IR is 25 deg PT-OP-M Strength Start: 01/06/21 16:14 Freq: Status: Active Protocol: Document 01/10/21 13:05 MB (Rec: 01/10/21 15:45 MB [id number]) Shoulder Strength Shoulder Manual Muscle Testing Left Flexion 5 Normal Abduction (C5) 5 Normal External Rotation 5 Normal Internal Rotation 5 Normal Right Comments Painful and guarded AROM and so MMT right shoulder deferred Elbow/Forearm Strength Elbow and Forearm Manual Muscle Testing Bilateral Flexion (C6) 5 Normal Extension (C7) 5 Normal Pronation 5 Normal Supination 5 Normal PT-OP-Q Treatments Start: 01/06/21 16:14 Freq: Status: Active Protocol: Document 02/01/21 13:02 SP (Rec: 02/01/21 16:04 SP [id number]) Cardio Equipment Upper Body Ergometer (UBE) Height unavailable Therapeutic Exercises Supine Exercises T,W, half X Supine Exercise Name flexion, H ABD, W hols then small range, half X- verbalized review Side bilateral Equipment Used floor x5 each > over foam roller x10 each Comments R distal teres/bicend ROM flexion, HABD, 1/3 x Sitting Exercises alexey Sitting Exercise Name FF, ABD seated, IR standing Side right Resistance AAROM Equipment Used limiting pain at posterior shld (AC Jt) and medial elbow Comments pain 7/10 at end feel FF 152*, ABD 168*, stand IR T11 Standing Exercises shld IR stretch Standing Exercise Name reviewed HEP Side right Equipment Used towel last tx (forgot to add), alexey this tx. Comments feedback tight, some discomfort but able to get further (T11) tricep stretch Standing Exercise Name facing wall, slide elbow up wall & sink down Side right Reps/Minutes 30 x2 Comments good stretch R shld flexion but limiting pain at medial elbow cross body stretch Standing Exercise Name self HEP posterior capsule stretch review Side right Reps/Minutes hold 20 sec x3 Comments good feedback, states does self with racqueball roll wall over post deltoid bicep stretch Standing Exercise Name manual - sitting Side right Reps/Minutes 30sec Comments good feedback, recheck next tx if needed and give HO for HEP Racquet ball massage Standing Exercise Name Intrascapular STM, infraspinatus MWM, posterior deltoid Side right Equipment Used LUE support RUE during post deltoid Comments good feedback, MWM shld IR/ ER ROM Other Exercises 1/2 kneel FF, ABD Other Exercise Name eccentric FF ( didnt have time to assess ABD)- recheck next tx for HEP Side right Resistance Tb #1 anchored behind Equipment Used pillow under opposite knee Reps/Minutes x3 each direction Comments good feedback response with reps- feels more control & get further Manual Therapy Treatment Soft Tissue Mobilization elbow Body Location R distal tricep> bicep Mobilization Type Cross-Friction,Myofascial Release,Strumming Intensity/Depth Moderate Body Position Sitting Comments between reps alexey FF, ABD- improved decrease medial epicondyle discomfort end feel . R Shoulder Body Location infraspinatus, posterior Delt, lats, subscap, Teres Minor Mobilization Type Myofascial Release,Strumming, Sustained Pressure,Trigger Point Release Intensity/Depth Moderate Body Position seated during pulleys Comments Pos deltoid, infraspinatus crossing GH joint location identified as a good spot by Pt. Palpated moderate tightness of musculature, but no areas of pressure produced pain. Pt reported shoulder felt less guarding w/ OH movements. Joint Mobilizations humeroulnar jt Joint w/ mob strap and towel Direction lateral, inferior Grade II Body Position Supine Comments pt reported minimal decrease in R shoulder Joint R GH Direction AP, PA, INF Grade II Body Position Supine Reps/Duration 2 Comments Mobilized joint PA, and INf with no pain PA and INF. Pt expressed shoulder feeling looser post tx. PT-OP-T Assessment and Plan Start: 01/06/21 16:14 Freq: Status: Active Protocol: Document 02/01/21 13:02 SP (Rec: 02/01/21 16:04 SP [id number]) Physical Therapy Assessment Goals 5 Assisted Goal (LTG) Pt will report a 75% improvement in sleeping to improve restorative rest by . LTG Duration 8 weeks 4 Customer Account Manager Goal (LTG) Pt will present with active right shoulder IR to at least T8 to improve donning and doffiing of jacket by 03/12/21. LTG Duration 8 weeks 3 Assisted Goal (LTG) Pt will present with AROM right shoulder flexion and abduction similiar to the left to improve reaching overhead by 03/12/21. LTG Duration 8 weeks 2 Assisted Goal (LTG) Pt will perform progressive HEP with I including range of motion, postural exercises, self-massage, breathing, flexibility and strengthening exercises to decrease pain and improve right arm function by 03/12/21. LTG Duration 8 weeks 1 Impairment QuickDASH score reflects 34.09 % impairment Customer Account Manager Goal (LTG) Pt will present with an improved QuickDASH score to reflect no more than 10% impairment to improve function and quality of life by . LTG Duration 8 weeks Assessment Summary Assessment Pt progressing in ROM, continues to have distal tricep pain OH end feed responds decreased tightness post manual. End of tx, less end feel pain in 1/2 kneel eccentric FF, anchored posteriorly. Will recheck performance and benefit next tx for safety as HEP, he stated felt more stability through range moving and able get into further range than supine/ sit/ stand. Physical Therapy Plan Frequency and Duration Frequency of Treatment 2x/Week Duration of Treatment 8 weeks Plan of Care Start Date 01/10/21 Plan of Care End Date 03/12/21 Therapeutic Interventions Therapeutic Interventions Aquatic Therapy,Canalithic Repositioning,Home Exercise Program,Joint Mobilizations, Manual Therapy,Neuromuscular Re-education,Patient/Caregiver Education,Self-Care/Home Management,Soft Tissue Mobilization,Taping, Therapeutic Activities, Therapeutic Exercises Modalities Cold Pack/Ice Massage,Hot Packs,Ultrasound Next Visit Focus/Plan Next Note Type Treatment Note Next Visit Plan [place] Protocol. Check pec minor/coracobracialis, add: 1/ 2 knee flex/abd against eccentric resistance, down dog . POC: Progress standing ROM and intruduce resistance if able. POC: [place] Protocol, open book Manual work to include first rib isometric, PA mobs and recoild thoracic spine and ed in pect minor stretch on pool noodle
--- NOTE | 2021-02-03 15:44 | PT.OTN ---
Current Diagnoses Pain in right shoulder (02/03/21) Physical Therapy Treatment Note PT-OP-A Visit Information Start: 01/06/21 16:14 Freq: Status: Active Protocol: Document 02/03/21 14:31 MB (Rec: 02/03/21 15:18 MB [id number]) Out-Patient Physical Therapy Visit Information Visit Information Visit Type Treatment Note Visit Note Mc[facility] 25 visits per year Reassessment next visit with primary 02/09 Visit Start Time 14:31 Visit Stop Time 15:15 Total Visit Minutes 44 Visit Number 8 Number of OPEN END SPINNING OPERATOR Visits 0 Evaluation Information Evaluation Date 01/10/21 PT-OP-B Current Condition Start: 01/06/21 16:14 Freq: Status: Active Protocol: Document 01/10/21 13:05 MB (Rec: 01/10/21 13:15 MB [id number]) Current Condition History of Current Condition Onset Date May 2020 Current Complaints Pain in right shoulder with some movements and pain with sleeping History of Current Condition In May, pt reached back to do something with the dog who was in the backseat and pt was in the [employer] driver's seat. He has had progressive decreasing ROM in his right shoulder as well as some decreasing strength. He is right-handed. He is favoring the arm. He is taking oral pain medication as prescribed by the doctor and using Voltaren at morning and at night. He has pain with reaching behind and up over his head. He points to right AC joint. He cannot sleep on his right side. He is sleeping on his back and left side. Pt rates pain as 4+/10 in his right shoulder. Pt has a history of torn meniscus right knee and surgery 10 years ago. He had PT for back pain 10 years ago. Pt reports two episodes of pain in his right elbow since the injury. He denies numbness and tingling. Treatment Goals Patient/Caregiver Goals To decrease pain and to improve right arm use and ROM PT-OP-C Subjective Start: 01/06/21 16:14 Freq: Status: Active Protocol: Document 02/03/21 14:31 MB (Rec: 02/03/21 15:18 MB [id number]) OP-PT Subjective Patient Comments Patient Comments Pt states that his right shoulder is getting better. Everything is improving and he can now sleep through the night. Pt states that the [place] Protocol is helpful. PT-OP-J Posture/Palpation/Skin Start: 01/06/21 16:14 Freq: Status: Active Protocol: Document 01/10/21 13:05 MB (Rec: 01/10/21 15:45 MB [id number]) Posture Evaluation Comments Posture Comments Standing posture with shoes on : forward head, cervical extension position in standing , Dowager's hump, elevated shoulders, decreased thoracic kyphosis, left shoulder higher than the right and left SC joint also higher than the right, right scapula lower than the left, increased varus LEs, iliac crests grossly level. PT-OP-K Range of Motion Start: 01/06/21 16:14 Freq: Status: Active Protocol: Document 01/10/21 13:05 MB (Rec: 01/10/21 15:45 MB [id number]) Cervical Spine Range of Motion Cervical Spine Active Testing Position Standing Flexion 35 Extension 30 Rotation Left 60 Rotation Right 50 Lateral Flexion Left 20 Lateral Flexion Right 20 Shoulder Goniometric Range of Motion Shoulder Left Shoulder ROM WFL Yes Testing Position Standing Flexion 140 Extension 61 Abduction 155 Internal Rotation Behind Back (text) To T5 Comments PROM in supine with left shoulder in 90/90: limited ER to 80 deg and IR to 50 deg at least Right Shoulder ROM WFL No Testing Position Standing Flexion 130 Extension 54 Abduction 140 Internal Rotation Behind Back (text) To S1 Comments PROM in supine with right shoulder in 80 deg abduction, pt states, stop before PT can reach end-feel end-range for ER and IR and ER is 30 deg and IR is 25 deg PT-OP-M Strength Start: 01/06/21 16:14 Freq: Status: Active Protocol: Document 01/10/21 13:05 MB (Rec: 01/10/21 15:45 MB [id number]) Shoulder Strength Shoulder Manual Muscle Testing Left Flexion 5 Normal Abduction (C5) 5 Normal External Rotation 5 Normal Internal Rotation 5 Normal Right Comments Painful and guarded AROM and so MMT right shoulder deferred Elbow/Forearm Strength Elbow and Forearm Manual Muscle Testing Bilateral Flexion (C6) 5 Normal Extension (C7) 5 Normal Pronation 5 Normal Supination 5 Normal PT-OP-Q Treatments Start: 01/06/21 16:14 Freq: Status: Active Protocol: Document 02/03/21 14:31 MB (Rec: 02/03/21 15:18 MB [id number]) Cardio Equipment Upper Body Ergometer (UBE) Duration (Minutes) 10 Other 1' forward and 1' backward Therapeutic Exercises Other Exercises Down dog Comments PFs and hamstrings very tight, cues for form, 10 sec 1/2 kneel FF, ABD Side bilateral Resistance Level 1 band Reps/Minutes Held abduction about 45 sec Comments Abduction distraction right only, in standing; B FF x5 Manual Therapy Treatment Other Other Manual Treatments Right shoulder [place] protocol: pt with increased tension and discomfort with shoulder in passive ER and PA joint mobs and right infraspinatus spasms with palpation. He has medial right elbow pain and reports limitations with ER at the elbow to the medial shoulder and PT does apply compression through the medial right elbow today and fascia does respond . PT-OP-T Assessment and Plan Start: 01/06/21 16:14 Freq: Status: Active Protocol: Document 02/03/21 14:31 MB (Rec: 02/03/21 15:18 MB [id number]) Physical Therapy Assessment Goals 5 Bow Rehairer Goal (LTG) Pt will report a 75% improvement in sleeping to improve restorative rest by . LTG Duration 8 weeks 4 Bow Rehairer Goal (LTG) Pt will present with active right shoulder IR to at least T8 to improve donning and doffiing of jacket by 03/12/21. LTG Duration 8 weeks 3 Bow Rehairer Goal (LTG) Pt will present with AROM right shoulder flexion and abduction similiar to the left to improve reaching overhead by 03/12/21. LTG Duration 8 weeks 2 Bow Rehairer Goal (LTG) Pt will perform progressive HEP with I including range of motion, postural exercises, self-massage, breathing, flexibility and strengthening exercises to decrease pain and improve right arm function by 03/12/21. LTG Duration 8 weeks 1 Impairment QuickDASH score reflects 34.09 % impairment Fdc Goal (LTG) Pt will present with an improved QuickDASH score to reflect no more than 10% impairment to improve function and quality of life by . LTG Duration 8 weeks Assessment Summary Assessment Pt reports a limitation and pain near his medial right elbow. PT performs compression release today and this is helpful for fascial tension. His PROM ER and PA mobs at the GH joint and passive IR with side lying [place] Protocol are very tight and uncomfortable for pt. His right infraspinatus spasms with GH mobs with the shoulder in ER. Con't to assess response to PT. Provided down dog to see if compression exercise helps. Physical Therapy Plan Frequency and Duration Frequency of Treatment 2x/Week Duration of Treatment 8 weeks Plan of Care Start Date 01/10/21 Plan of Care End Date 03/12/21 Therapeutic Interventions Therapeutic Interventions Aquatic Therapy,Canalithic Repositioning,Home Exercise Program,Joint Mobilizations, Manual Therapy,Neuromuscular Re-education,Patient/Caregiver Education,Self-Care/Home Management,Soft Tissue Mobilization,Taping, Therapeutic Activities, Therapeutic Exercises Modalities Cold Pack/Ice Massage,Hot Packs,Ultrasound Next Visit Focus/Plan Next Note Type Treatment Note Next Visit Plan [place] Protocol, open book, other appropriate exercises per OPEN END SPINNING OPERATOR Manual work to include first rib isometric, PA mobs and recoild thoracic spine and ed in pect minor stretch on pool noodle
--- NOTE | 2021-02-09 13:49 | PT.OTN ---
Current Diagnoses Pain in right shoulder (02/09/21) Physical Therapy Treatment Note PT-OP-A Visit Information Start: 01/06/21 16:14 Freq: Status: Active Protocol: Document 02/09/21 12:15 MB (Rec: 02/09/21 13:10 MB [id number]) Out-Patient Physical Therapy Visit Information Visit Information Visit Type Progress Note Visit Note Mcguire 25 visits per year Visit Start Time 12:15 Visit Stop Time 13:00 Total Visit Minutes 45 Visit Number 9 Number of FREIGHT LOADER Visits 0 Evaluation Information Evaluation Date 01/10/21 PT-OP-B Current Condition Start: 01/06/21 16:14 Freq: Status: Active Protocol: Document 01/10/21 13:05 MB (Rec: 01/10/21 13:15 MB [id number]) Current Condition History of Current Condition Onset Date May 2020 Current Complaints Pain in right shoulder with some movements and pain with sleeping History of Current Condition In May, pt reached back to do something with the dog who was in the backseat and 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 He has had progressive decreasing ROM in his right shoulder as well as some decreasing strength. He is right-handed. He is favoring the arm. He is taking oral pain medication as prescribed by the doctor and using Voltaren at morning and at night. He has pain with reaching behind and up over his head. He points to right AC joint. He cannot sleep on his right side. He is sleeping on his back and left side. Pt rates pain as 4+/10 in his right shoulder. Pt has a history of torn meniscus right knee and surgery 10 years ago. He had PT for back pain 10 years ago. Pt reports two episodes of pain in his right elbow since the injury. He denies numbness and tingling. Treatment Goals Patient/Caregiver Goals To decrease pain and to improve right arm use and ROM PT-OP-C Subjective Start: 01/06/21 16:14 Freq: Status: Active Protocol: Document 02/09/21 12:15 MB (Rec: 02/09/21 13:10 MB [id number]) OP-PT Subjective Patient Comments Patient Comments Pt states that he thinks the Reynolds protocol and manual work is helpful. Downward dog is challenging d/t the tightness in his hamstrings and calves. Pt reports that he is sleeping well through the night and that is a big deal since starting PT. PT-OP-J Posture/Palpation/Skin Start: 01/06/21 16:14 Freq: Status: Active Protocol: Document 01/10/21 13:05 MB (Rec: 01/10/21 15:45 MB [id number]) Posture Evaluation Comments Posture Comments Standing posture with shoes on : forward head, cervical extension position in standing , Dowager's hump, elevated shoulders, decreased thoracic kyphosis, left shoulder higher than the right and left SC joint also higher than the right, right scapula lower than the left, increased varus LEs, iliac crests grossly level. PT-OP-K Range of Motion Start: 01/06/21 16:14 Freq: Status: Active Protocol: Document 01/10/21 13:05 MB (Rec: 01/10/21 15:45 MB [id number]) Cervical Spine Range of Motion Cervical Spine Active Testing Position Standing Flexion 35 Extension 30 Rotation Left 60 Rotation Right 50 Lateral Flexion Left 20 Lateral Flexion Right 20 Shoulder Goniometric Range of Motion Shoulder Left Shoulder ROM WFL Yes Testing Position Standing Flexion 140 Extension 61 Abduction 155 Internal Rotation Behind Back (text) To T5 Comments PROM in supine with left shoulder in 90/90: limited ER to 80 deg and IR to 50 deg at least Right Shoulder ROM WFL No Testing Position Standing Flexion 130 Extension 54 Abduction 140 Internal Rotation Behind Back (text) To S1 Comments PROM in supine with right shoulder in 80 deg abduction, pt states, stop before PT can reach end-feel end-range for ER and IR and ER is 30 deg and IR is 25 deg PT-OP-M Strength Start: 01/06/21 16:14 Freq: Status: Active Protocol: Document 01/10/21 13:05 MB (Rec: 01/10/21 15:45 MB [id number]) Shoulder Strength Shoulder Manual Muscle Testing Left Flexion 5 Normal Abduction (C5) 5 Normal External Rotation 5 Normal Internal Rotation 5 Normal Right Comments Painful and guarded AROM and so MMT right shoulder deferred Elbow/Forearm Strength Elbow and Forearm Manual Muscle Testing Bilateral Flexion (C6) 5 Normal Extension (C7) 5 Normal Pronation 5 Normal Supination 5 Normal PT-OP-Q Treatments Start: 01/06/21 16:14 Freq: Status: Active Protocol: Document 02/09/21 12:15 MB (Rec: 02/09/21 13:10 MB [id number]) Cardio Equipment Upper Body Ergometer (UBE) Duration (Minutes) 16 Other 1' forward and 1' backward Manual Therapy Treatment Other Other Manual Treatments Counterstrain to assess and treat fascial tension and pt presents with fascial tension in the following systems: persiosteal and PT treats cervical and thoracic points. PT then provides compression through the right humerus through elbow and fascial tension on biceps clears and bone moves better, also positional release right pect major PT-OP-T Assessment and Plan Start: 01/06/21 16:14 Freq: Status: Active Protocol: Document 02/09/21 12:15 MB (Rec: 02/09/21 13:10 MB [id number]) Physical Therapy Assessment Rehab Potential Rehabilitation Potential Good Evaluation Complexity Number of Personal Factors/Comorbidities 1-2 Number of Body Systems Impaired 1-2 Clinical Presentation at Evaluation Evolving Impairments Impairments Activity Tolerance,Functional Activities,Functional Mobility ,Pain,Posture,ROM,Soft Tissue Mobility,Strength Other Impairments Personal factors include guarding behavior during assessment. Body systems affected include musculoskeletal and neuromuscular. Goals 5 Care Home Goal (LTG) Pt will report a 75% improvement in sleeping to improve restorative rest by . 02/09/22: Pt is sleeping a full 8 hours LTG Duration Met 4 Care Home Goal (LTG) Pt will present with active right shoulder IR to at least T8 to improve donning and doffiing of jacket by 03/12/21. 02/09/21: Right shoulder IR is to about T9 today LTG Duration 4 weeks 3 Dental Laboratory Technician Goal (LTG) Pt will present with AROM right shoulder flexion and abduction similiar to the left to improve reaching overhead by 03/12/21. 02/09/21: Right shoulder flexion to 138 deg and left 150 deg in standing; abduction : right shoulder abduction to 165 deg and left shoulder abduction to 162 abduction. Pt states that he ranges right arm to the pain limit LTG Duration 4 weeks 2 Dental Laboratory Technician Goal (LTG) Pt will perform progressive HEP with I including range of motion, postural exercises, self-massage, breathing, flexibility and strengthening exercises to decrease pain and improve right arm function by 03/12/21. 02/09/21: Pt states that all his exercises are helpful except the downward dog because of leg limitation LTG Duration 4 weeks 1 Impairment QuickDASH score reflects 34.09 % impairment Care Home Goal (LTG) Pt will present with an improved QuickDASH score to reflect no more than 10% impairment to improve function and quality of life by . 02/09/21: QuickDASH score reflects 18.18% impairment, which is an improvement since the evaluation LTG Duration 4 weeks Assessment Summary Assessment Pt has progressed towards all PT goals since starting PT and these include ROM, sleeping, QuickDASH and HEP goals. PT does suspect that he has an antomical injury at the joint capsule that is a limiting factor. He will benefit from ongoing PT to improve range, pain, and function. Physical Therapy Plan Frequency and Duration Frequency of Treatment 2x/Week Duration of Treatment 4 weeks Plan of Care Start Date 02/09/21 Plan of Care End Date 03/12/21 Therapeutic Interventions Therapeutic Interventions Canalithic Repositioning,Home Exercise Program,Joint Mobilizations,Manual Therapy, Neuromuscular Re-education, Patient/Caregiver Education, Self-Care/Home Management,Soft Tissue Mobilization,Taping, Therapeutic Activities, Therapeutic Exercises Modalities Cold Pack/Ice Massage,Hot Packs,Ultrasound Next Visit Focus/Plan Next Note Type Treatment Note Next Visit Plan Reynolds Protocol, open book, other appropriate exercises per FREIGHT LOADER Manual work to include first rib isometric, PA mobs and recoil thoracic spine and ed in pect minor stretch on pool noodle
--- NOTE | 2021-02-09 13:49 | PT.OPPOC ---
Physical, Occupational & Speech Therapy At [facility] Current Diagnoses Pain in right shoulder (02/09/21) Visit Care Team Role Provider Type Waylon Morris MD Attending Provider Physician Family Provider Primary Care Provider Referring Provider Specialty: Family Practice [place]: [place], [address] Email: [email or web address] Plan Of Care PT-OP-T Assessment and Plan Start: 01/06/21 16:14 Freq: Status: Active Protocol: Document 02/09/21 12:15 MB (Rec: 02/09/21 13:10 MB [id number]) Physical Therapy Assessment Rehab Potential Rehabilitation Potential Good Evaluation Complexity Number of Personal Factors/Comorbidities 1-2 Number of Body Systems Impaired 1-2 Clinical Presentation at Evaluation Evolving Impairments Impairments Activity Tolerance,Functional Activities,Functional Mobility ,Pain,Posture,ROM,Soft Tissue Mobility,Strength Other Impairments Personal factors include guarding behavior during assessment. Body systems affected include musculoskeletal and neuromuscular. Goals 5 Retirement Goal (LTG) Pt will report a 75% improvement in sleeping to improve restorative rest by . 02/09/22: Pt is sleeping a full 8 hours LTG Duration Met 4 Retirement Goal (LTG) Pt will present with active right shoulder IR to at least T8 to improve donning and doffiing of jacket by 03/12/21. 02/09/21: Right shoulder IR is to about T9 today LTG Duration 4 weeks 3 Retirement Goal (LTG) Pt will present with AROM right shoulder flexion and abduction similiar to the left to improve reaching overhead by 03/12/21. 02/09/21: Right shoulder flexion to 138 deg and left 150 deg in standing; abduction : right shoulder abduction to 165 deg and left shoulder abduction to 162 abduction. Pt states that he ranges right arm to the pain limit LTG Duration 4 weeks 2 Retirement Goal (LTG) Pt will perform progressive HEP with I including range of motion, postural exercises, self-massage, breathing, flexibility and strengthening exercises to decrease pain and improve right arm function by 03/12/21. 02/09/21: Pt states that all his exercises are helpful except the downward dog because of leg limitation LTG Duration 4 weeks 1 Impairment QuickDASH score reflects 34.09 % impairment Aircraft Refueler Goal (LTG) Pt will present with an improved QuickDASH score to reflect no more than 10% impairment to improve function and quality of life by . 02/09/21: QuickDASH score reflects 18.18% impairment, which is an improvement since the evaluation LTG Duration 4 weeks Assessment Summary Assessment Pt has progressed towards all PT goals since starting PT and these include ROM, sleeping, QuickDASH and HEP goals. PT does suspect that he has an antomical injury at the joint capsule that is a limiting factor. He will benefit from ongoing PT to improve range, pain, and function. Physical Therapy Plan Frequency and Duration Frequency of Treatment 2x/Week Duration of Treatment 4 weeks Plan of Care Start Date 02/09/21 Plan of Care End Date 03/12/21 Therapeutic Interventions Therapeutic Interventions Canalithic Repositioning,Home Exercise Program,Joint Mobilizations,Manual Therapy, Neuromuscular Re-education, Patient/Caregiver Education, Self-Care/Home Management,Soft Tissue Mobilization,Taping, Therapeutic Activities, Therapeutic Exercises Modalities Cold Pack/Ice Massage,Hot Packs,Ultrasound Next Visit Focus/Plan Next Note Type Treatment Note Next Visit Plan [place] Protocol, open book, other appropriate exercises per [employer] Manual work to include first rib isometric, PA mobs and recoil thoracic spine and ed in pect minor stretch on pool noodle Plan of Care Dates Plan of Care Start Date 02/09/21 Plan of Care End Date 03/12/21 Electronically Signed by: Whitney Mckenna, PT 02/09/21 [id number] Please Sign and Return: I have reviewed this Plan of Care and certify that the skilled therapy services above are required to meet the patient?s needs. Physician Signature Date Printed Name and Credentials Clinical Instructor Signature Printed Name and Credentials
--- NOTE | 2021-02-14 13:02 | PT.OTN ---
Current Diagnoses Pain in right shoulder (02/14/21) Physical Therapy Treatment Note PT-OP-A Visit Information Start: 01/06/21 16:14 Freq: Status: Active Protocol: Document 02/14/21 12:13 MB (Rec: 02/14/21 13:02 MB [id number]) Out-Patient Physical Therapy Visit Information Visit Information Visit Type Treatment Note Visit Note Cmguire 25 visits per year Visit Start Time 12:13 Visit Stop Time 13:00 Total Visit Minutes 47 Visit Number 10 Number of STEM FRAZER Visits 0 Evaluation Information Evaluation Date 01/10/21 PT-OP-B Current Condition Start: 01/06/21 16:14 Freq: Status: Active Protocol: Document 01/10/21 13:05 MB (Rec: 01/10/21 13:15 MB [id number]) Current Condition History of Current Condition Onset Date May 2020 Current Complaints Pain in right shoulder with some movements and pain with sleeping History of Current Condition In May, pt reached back to do something with the dog who was in the backseat 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 He has had progressive decreasing ROM in his right shoulder as well as some decreasing strength. He is right-handed. He is favoring the arm. He is taking oral pain medication as prescribed by the doctor and using Voltaren at morning and at night. He has pain with reaching behind and up over his head. He points to right AC joint. He cannot sleep on his right side. He is sleeping on his back and left side. Pt rates pain as 4+/10 in his right shoulder. Pt has a history of torn meniscus right knee and surgery 10 years ago. He had PT for back pain 10 years ago. Pt reports two episodes of pain in his right elbow since the injury. He denies numbness and tingling. Treatment Goals Patient/Caregiver Goals To decrease pain and to improve right arm use and ROM PT-OP-C Subjective Start: 01/06/21 16:14 Freq: Status: Active Protocol: Document 02/14/21 12:13 MB (Rec: 02/14/21 13:02 MB [id number]) OP-PT Subjective Patient Comments Patient Comments Pt states that his shoulder is feeling good. He has done his stretching and racquet ball manipulation this morning. PT-OP-J Posture/Palpation/Skin Start: 01/06/21 16:14 Freq: Status: Active Protocol: Document 01/10/21 13:05 MB (Rec: 01/10/21 15:45 MB [id number]) Posture Evaluation Comments Posture Comments Standing posture with shoes on : forward head, cervical extension position in standing , Dowager's hump, elevated shoulders, decreased thoracic kyphosis, left shoulder higher than the right and left SC joint also higher than the right, right scapula lower than the left, increased varus LEs, iliac crests grossly level. PT-OP-K Range of Motion Start: 01/06/21 16:14 Freq: Status: Active Protocol: Document 01/10/21 13:05 MB (Rec: 01/10/21 15:45 MB [id number]) Cervical Spine Range of Motion Cervical Spine Active Testing Position Standing Flexion 35 Extension 30 Rotation Left 60 Rotation Right 50 Lateral Flexion Left 20 Lateral Flexion Right 20 Shoulder Goniometric Range of Motion Shoulder Left Shoulder ROM WFL Yes Testing Position Standing Flexion 140 Extension 61 Abduction 155 Internal Rotation Behind Back (text) To T5 Comments PROM in supine with left shoulder in 90/90: limited ER to 80 deg and IR to 50 deg at least Right Shoulder ROM WFL No Testing Position Standing Flexion 130 Extension 54 Abduction 140 Internal Rotation Behind Back (text) To S1 Comments PROM in supine with right shoulder in 80 deg abduction, pt states, stop before PT can reach end-feel end-range for ER and IR and ER is 30 deg and IR is 25 deg PT-OP-M Strength Start: 01/06/21 16:14 Freq: Status: Active Protocol: Document 01/10/21 13:05 MB (Rec: 01/10/21 15:45 MB [id number]) Shoulder Strength Shoulder Manual Muscle Testing Left Flexion 5 Normal Abduction (C5) 5 Normal External Rotation 5 Normal Internal Rotation 5 Normal Right Comments Painful and guarded AROM and so MMT right shoulder deferred Elbow/Forearm Strength Elbow and Forearm Manual Muscle Testing Bilateral Flexion (C6) 5 Normal Extension (C7) 5 Normal Pronation 5 Normal Supination 5 Normal PT-OP-Q Treatments Start: 01/06/21 16:14 Freq: Status: Active Protocol: Document 02/14/21 12:13 MB (Rec: 02/14/21 13:02 MB [id number]) Cardio Equipment Upper Body Ergometer (UBE) Duration (Minutes) 10 Other 1 forward and 1' backward Therapeutic Exercises Sidelying Exercises Open book with elbows bent and hands behind head Side bilateral Comments 5 reps slowly with breathing in and out of nose Open book Side bilateral Comments 5 reps slowly and hold end- range Sitting Exercises Flexion and abduction slides over table Side bilateral Comments Left hand to mob at right GH joint Manual Therapy Treatment Other Other Manual Treatments Pt's right pect major has more tension than pect minor. MWM and stretching and STM right pect major. PA thoracic mobs and rib recoil, right scapular mobs, positional release and STM right upper traps and levator and infraspinatus PT-OP-T Assessment and Plan Start: 01/06/21 16:14 Freq: Status: Active Protocol: Document 02/14/21 12:13 MB (Rec: 02/14/21 13:02 MB [id number]) Physical Therapy Assessment Rehab Potential Rehabilitation Potential Good Evaluation Complexity Number of Personal Factors/Comorbidities 1-2 Number of Body Systems Impaired 1-2 Clinical Presentation at Evaluation Evolving Impairments Impairments Activity Tolerance,Functional Activities,Functional Mobility ,Pain,Posture,ROM,Soft Tissue Mobility,Strength Other Impairments Personal factors include guarding behavior during assessment. Body systems affected include musculoskeletal and neuromuscular. Goals 4 Detention Goal (LTG) Pt will present with active right shoulder IR to at least T8 to improve donning and doffiing of jacket by 03/12/21. 02/09/21: Right shoulder IR is to about T9 today LTG Duration 4 weeks 3 Industrial Roof Plumber Goal (LTG) Pt will present with AROM right shoulder flexion and abduction similiar to the left to improve reaching overhead by 03/12/21. 02/09/21: Right shoulder flexion to 138 deg and left 150 deg in standing; abduction : right shoulder abduction to 165 deg and left shoulder abduction to 162 abduction. Pt states that he ranges right arm to the pain limit LTG Duration 4 weeks 2 Detention Goal (LTG) Pt will perform progressive HEP with I including range of motion, postural exercises, self-massage, breathing, flexibility and strengthening exercises to decrease pain and improve right arm function by 03/12/21. 02/09/21: Pt states that all his exercises are helpful except the downward dog because of leg limitation LTG Duration 4 weeks 1 Impairment QuickDASH score reflects 34.09 % impairment Industrial Roof Plumber Goal (LTG) Pt will present with an improved QuickDASH score to reflect no more than 10% impairment to improve function and quality of life by . 02/09/21: QuickDASH score reflects 18.18% impairment, which is an improvement since the evaluation LTG Duration 4 weeks Assessment Summary Assessment Pt is progressing and does con 't to have some restrictions. PT recommends orthopedist consult. PT does not wish to use up all his visits for the year if he needs a procedure. Physical Therapy Plan Frequency and Duration Frequency of Treatment 2x/Week Duration of Treatment 4 weeks Plan of Care Start Date 02/09/21 Plan of Care End Date 03/12/21 Therapeutic Interventions Therapeutic Interventions Canalithic Repositioning,Home Exercise Program,Joint Mobilizations,Manual Therapy, Neuromuscular Re-education, Patient/Caregiver Education, Self-Care/Home Management,Soft Tissue Mobilization,Taping, Therapeutic Activities, Therapeutic Exercises Modalities Cold Pack/Ice Massage,Hot Packs,Ultrasound Next Visit Focus/Plan Next Note Type Treatment Note Next Visit Plan Review his exercises given previously
--- NOTE | 2021-02-21 13:01 | PT.OTN ---
Current Diagnoses Pain in right shoulder (02/21/21) Physical Therapy Treatment Note PT-OP-A Visit Information Start: 01/06/21 16:14 Freq: Status: Active Protocol: Document 02/21/21 12:14 MB (Rec: 02/21/21 13:01 MB [id number]) Out-Patient Physical Therapy Visit Information Visit Information Visit Type Treatment Note Visit Note [facility] 25 visits per year Visit Start Time 12:14 Visit Stop Time 13:00 Total Visit Minutes 46 Visit Number 11 Number of PROTEIN CHEMIST Visits 0 Evaluation Information Evaluation Date 01/10/21 PT-OP-B Current Condition Start: 01/06/21 16:14 Freq: Status: Active Protocol: Document 01/10/21 13:05 MB (Rec: 01/10/21 13:15 MB [id number]) Current Condition History of Current Condition Onset Date May 2020 Current Complaints Pain in right shoulder with some movements and pain with sleeping History of Current Condition In May, pt reached back to do something with the dog who was in the backseat and 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 He has had progressive decreasing ROM in his right shoulder as well as some decreasing strength. He is right-handed. He is favoring the arm. He is taking oral pain medication as prescribed by the doctor and using Voltaren at morning and at night. He has pain with reaching behind and up over his head. He points to right AC joint. He cannot sleep on his right side. He is sleeping on his back and left side. Pt rates pain as 4+/10 in his right shoulder. Pt has a history of torn meniscus right knee and surgery 10 years ago. He had PT for back pain 10 years ago. Pt reports two episodes of pain in his right elbow since the injury. He denies numbness and tingling. Treatment Goals Patient/Caregiver Goals To decrease pain and to improve right arm use and ROM PT-OP-C Subjective Start: 01/06/21 16:14 Freq: Status: Active Protocol: Document 02/21/21 12:14 MB (Rec: 02/21/21 13:01 MB [id number]) OP-PT Subjective Patient Comments Patient Comments Pt states he feels good. It's not linear. Some days it feels good and someimtes it doesn't. It's way more better than not. Sleeping is better. PT-OP-J Posture/Palpation/Skin Start: 01/06/21 16:14 Freq: Status: Active Protocol: Document 01/10/21 13:05 MB (Rec: 01/10/21 15:45 MB [id number]) Posture Evaluation Comments Posture Comments Standing posture with shoes on : forward head, cervical extension position in standing , Dowager's hump, elevated shoulders, decreased thoracic kyphosis, left shoulder higher than the right and left SC joint also higher than the right, right scapula lower than the left, increased varus LEs, iliac crests grossly level. PT-OP-K Range of Motion Start: 01/06/21 16:14 Freq: Status: Active Protocol: Document 01/10/21 13:05 MB (Rec: 01/10/21 15:45 MB [id number]) Cervical Spine Range of Motion Cervical Spine Active Testing Position Standing Flexion 35 Extension 30 Rotation Left 60 Rotation Right 50 Lateral Flexion Left 20 Lateral Flexion Right 20 Shoulder Goniometric Range of Motion Shoulder Left Shoulder ROM WFL Yes Testing Position Standing Flexion 140 Extension 61 Abduction 155 Internal Rotation Behind Back (text) To T5 Comments PROM in supine with left shoulder in 90/90: limited ER to 80 deg and IR to 50 deg at least Right Shoulder ROM WFL No Testing Position Standing Flexion 130 Extension 54 Abduction 140 Internal Rotation Behind Back (text) To S1 Comments PROM in supine with right shoulder in 80 deg abduction, pt states, stop before PT can reach end-feel end-range for ER and IR and ER is 30 deg and IR is 25 deg PT-OP-M Strength Start: 01/06/21 16:14 Freq: Status: Active Protocol: Document 01/10/21 13:05 MB (Rec: 01/10/21 15:45 MB [id number]) Shoulder Strength Shoulder Manual Muscle Testing Left Flexion 5 Normal Abduction (C5) 5 Normal External Rotation 5 Normal Internal Rotation 5 Normal Right Comments Painful and guarded AROM and so MMT right shoulder deferred Elbow/Forearm Strength Elbow and Forearm Manual Muscle Testing Bilateral Flexion (C6) 5 Normal Extension (C7) 5 Normal Pronation 5 Normal Supination 5 Normal PT-OP-Q Treatments Start: 01/06/21 16:14 Freq: Status: Active Protocol: Document 02/21/21 12:14 MB (Rec: 02/21/21 13:01 MB [id number]) Cardio Equipment Upper Body Ergometer (UBE) Duration (Minutes) 10 Other 1' forward and 1' backward Therapeutic Exercises Supine Exercises thoracic ext over roller Supine Exercise Name AROM and bands Ts, pect stretch, half x, flexion Side bilateral Resistance Level 1 and 2 bands Equipment Used Foam roller Reps/Minutes 10 AROM and 10 with band Comments Level 1 and 2 Ts and 1/2 x, level 2 flexion Posterior capsule stretch Side right Equipment Used Foam roller Comments 30 sec Pec Stretch Equipment Used Foam roller Comments 30 sec at least T,W, half X Comments Done over roller today Standing Exercises shld IR stretch Side right Comments Towel use and resisted isometric today Other Exercises Down dog Equipment Used Rolled yoga mat under heels Comments Practiced alternating knee bend 1/2 kneel FF, ABD Comments Performed today and added throw PT-OP-T Assessment and Plan Start: 01/06/21 16:14 Freq: Status: Active Protocol: Document 02/21/21 12:14 MB (Rec: 02/21/21 13:01 MB [id number]) Physical Therapy Assessment Rehab Potential Rehabilitation Potential Good Evaluation Complexity Number of Personal Factors/Comorbidities 1-2 Number of Body Systems Impaired 1-2 Clinical Presentation at Evaluation Evolving Impairments Impairments Activity Tolerance,Functional Activities,Functional Mobility ,Pain,Posture,ROM,Soft Tissue Mobility,Strength Other Impairments Personal factors include guarding behavior during assessment. Body systems affected include musculoskeletal and neuromuscular. Goals 4 Alf Goal (LTG) Pt will present with active right shoulder IR to at least T8 to improve donning and doffiing of jacket by 03/12/21. 02/09/21: Right shoulder IR is to about T9 today LTG Duration 4 weeks 3 Alf Goal (LTG) Pt will present with AROM right shoulder flexion and abduction similiar to the left to improve reaching overhead by 03/12/21. 02/09/21: Right shoulder flexion to 138 deg and left 150 deg in standing; abduction : right shoulder abduction to 165 deg and left shoulder abduction to 162 abduction. Pt states that he ranges right arm to the pain limit LTG Duration 4 weeks 2 Alf Goal (LTG) Pt will perform progressive HEP with I including range of motion, postural exercises, self-massage, breathing, flexibility and strengthening exercises to decrease pain and improve right arm function by 03/12/21. 02/09/21: Pt states that all his exercises are helpful except the downward dog because of leg limitation LTG Duration 4 weeks 1 Impairment QuickDASH score reflects 34.09 % impairment Alf Goal (LTG) Pt will present with an improved QuickDASH score to reflect no more than 10% impairment to improve function and quality of life by . 02/09/21: QuickDASH score reflects 18.18% impairment, which is an improvement since the evaluation LTG Duration 4 weeks Assessment Summary Assessment Reviewed exercises today and progressed a few strengthening exercises. See plan below. Physical Therapy Plan Frequency and Duration Frequency of Treatment 2x/Week Duration of Treatment 4 weeks Plan of Care Start Date 02/09/21 Plan of Care End Date 03/12/21 Therapeutic Interventions Therapeutic Interventions Canalithic Repositioning,Home Exercise Program,Joint Mobilizations,Manual Therapy, Neuromuscular Re-education, Patient/Caregiver Education, Self-Care/Home Management,Soft Tissue Mobilization,Taping, Therapeutic Activities, Therapeutic Exercises Modalities Cold Pack/Ice Massage,Hot Packs,Ultrasound Next Visit Focus/Plan Next Note Type Treatment Note Next Visit Plan Shoulder ER with band over foam roller, standing scapular retraction and over the door scap retraction and elbow flexion and extension, IR in front and behind with band, consider body blade
--- NOTE | 2021-02-28 13:03 | PT.OTN ---
Current Diagnoses Pain in right shoulder (02/28/21) Physical Therapy Treatment Note PT-OP-A Visit Information Start: 01/06/21 16:14 Freq: Status: Active Protocol: Document 02/28/21 12:14 MB (Rec: 02/28/21 13:03 MB [id number]) Out-Patient Physical Therapy Visit Information Visit Information Visit Type Treatment Note Visit Note [facility] 25 visits per year Visit Start Time 12:14 Visit Stop Time 12:59 Total Visit Minutes 45 Visit Number [address] Evaluation Information Evaluation Date 01/10/21 PT-OP-B Current Condition Start: 01/06/21 16:14 Freq: Status: Active Protocol: Document 01/10/21 13:05 MB (Rec: 01/10/21 13:15 MB [id number]) Current Condition History of Current Condition Onset Date May 2020 Current Complaints Pain in right shoulder with some movements and pain with sleeping History of Current Condition In May, pt reached back to do something with the dog who was in the backseat 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 He has had progressive decreasing ROM in his right shoulder as well as some decreasing strength. He is right-handed. He is favoring the arm. He is taking oral pain medication as prescribed by the doctor and using Voltaren at morning and at night. He has pain with reaching behind and up over his head. He points to right AC joint. He cannot sleep on his right side. He is sleeping on his back and left side. Pt rates pain as 4+/10 in his right shoulder. Pt has a history of torn meniscus right knee and surgery 10 years ago. He had PT for back pain 10 years ago. Pt reports two episodes of pain in his right elbow since the injury. He denies numbness and tingling. Treatment Goals Patient/Caregiver Goals To decrease pain and to improve right arm use and ROM PT-OP-C Subjective Start: 01/06/21 16:14 Freq: Status: Active Protocol: Document 02/28/21 12:14 MB (Rec: 02/28/21 13:03 MB [id number]) OP-PT Subjective Patient Comments Patient Comments Pt states he is doing good. Over the course of the last week, he has thought less about his shoulder than he has since he started the PT process. PT-OP-J Posture/Palpation/Skin Start: 01/06/21 16:14 Freq: Status: Active Protocol: Document 01/10/21 13:05 MB (Rec: 01/10/21 15:45 MB [id number]) Posture Evaluation Comments Posture Comments Standing posture with shoes on : forward head, cervical extension position in standing , Dowager's hump, elevated shoulders, decreased thoracic kyphosis, left shoulder higher than the right and left SC joint also higher than the right, right scapula lower than the left, increased varus LEs, iliac crests grossly level. PT-OP-K Range of Motion Start: 01/06/21 16:14 Freq: Status: Active Protocol: Document 01/10/21 13:05 MB (Rec: 01/10/21 15:45 MB [id number]) Cervical Spine Range of Motion Cervical Spine Active Testing Position Standing Flexion 35 Extension 30 Rotation Left 60 Rotation Right 50 Lateral Flexion Left 20 Lateral Flexion Right 20 Shoulder Goniometric Range of Motion Shoulder Left Shoulder ROM WFL Yes Testing Position Standing Flexion 140 Extension 61 Abduction 155 Internal Rotation Behind Back (text) To T5 Comments PROM in supine with left shoulder in 90/90: limited ER to 80 deg and IR to 50 deg at least Right Shoulder ROM WFL No Testing Position Standing Flexion 130 Extension 54 Abduction 140 Internal Rotation Behind Back (text) To S1 Comments PROM in supine with right shoulder in 80 deg abduction, pt states, stop before PT can reach end-feel end-range for ER and IR and ER is 30 deg and IR is 25 deg PT-OP-M Strength Start: 01/06/21 16:14 Freq: Status: Active Protocol: Document 01/10/21 13:05 MB (Rec: 01/10/21 15:45 MB [id number]) Shoulder Strength Shoulder Manual Muscle Testing Left Flexion 5 Normal Abduction (C5) 5 Normal External Rotation 5 Normal Internal Rotation 5 Normal Right Comments Painful and guarded AROM and so MMT right shoulder deferred Elbow/Forearm Strength Elbow and Forearm Manual Muscle Testing Bilateral Flexion (C6) 5 Normal Extension (C7) 5 Normal Pronation 5 Normal Supination 5 Normal PT-OP-Q Treatments Start: 01/06/21 16:14 Freq: Status: Active Protocol: Document 02/28/21 12:14 MB (Rec: 02/28/21 13:03 MB [id number]) Cardio Equipment Upper Body Ergometer (UBE) Duration (Minutes) 10 Other 1' forward and 1' backward Therapeutic Exercises Supine Exercises Foam roller shoulder ER Side bilateral Resistance Level 2 band Comments 10 reps slowly, cues to keep elbows at side Standing Exercises Resisted IR in front and behind Side right Resistance Level 1 band Comments 5 reps in front and 5 in back x3 Scapular retraction with triceps work Side bilateral Resistance Level 2 band Comments 10 reps slowly and cues to keep shoulder blades tight, then triceps work Row with arms straight Side bilateral Resistance Level 2 band Comments 10 reps slowly and cues for posture and form as pt tends to have expanded c Body blade Standing Exercise Name Patient likes classic better and performed flexion, abduction, extension Manual Therapy Treatment Other Other Manual Treatments STM right pect and tension is much better after treatment PT-OP-T Assessment and Plan Start: 01/06/21 16:14 Freq: Status: Active Protocol: Document 02/28/21 12:14 MB (Rec: 02/28/21 13:03 MB [id number]) Physical Therapy Assessment Rehab Potential Rehabilitation Potential Good Evaluation Complexity Number of Personal Factors/Comorbidities 1-2 Number of Body Systems Impaired 1-2 Clinical Presentation at Evaluation Evolving Impairments Impairments Activity Tolerance,Functional Activities,Functional Mobility ,Pain,Posture,ROM,Soft Tissue Mobility,Strength Other Impairments Personal factors include guarding behavior during assessment. Body systems affected include musculoskeletal and neuromuscular. Goals 4 Penitentiary Goal (LTG) Pt will present with active right shoulder IR to at least T8 to improve donning and doffiing of jacket by 03/12/21. 02/09/21: Right shoulder IR is to about T9 today LTG Duration 4 weeks 3 Stone Rigger Goal (LTG) Pt will present with AROM right shoulder flexion and abduction similiar to the left to improve reaching overhead by 03/12/21. 02/09/21: Right shoulder flexion to 138 deg and left 150 deg in standing; abduction : right shoulder abduction to 165 deg and left shoulder abduction to 162 abduction. Pt states that he ranges right arm to the pain limit LTG Duration 4 weeks 2 Stone Rigger Goal (LTG) Pt will perform progressive HEP with I including range of motion, postural exercises, self-massage, breathing, flexibility and strengthening exercises to decrease pain and improve right arm function by 03/12/21. 02/09/21: Pt states that all his exercises are helpful except the downward dog because of leg limitation LTG Duration 4 weeks 1 Impairment QuickDASH score reflects 34.09 % impairment Penitentiary Goal (LTG) Pt will present with an improved QuickDASH score to reflect no more than 10% impairment to improve function and quality of life by . 02/09/21: QuickDASH score reflects 18.18% impairment, which is an improvement since the evaluation LTG Duration 4 weeks Assessment Summary Assessment Progressed exercises today and resisted IR did cause discomfort when performed behind the back and so pt will be careful with this at home. Physical Therapy Plan Frequency and Duration Frequency of Treatment 2x/Week Duration of Treatment 4 weeks Plan of Care Start Date 02/09/21 Plan of Care End Date 03/12/21 Therapeutic Interventions Therapeutic Interventions Canalithic Repositioning,Home Exercise Program,Joint Mobilizations,Manual Therapy, Neuromuscular Re-education, Patient/Caregiver Education, Self-Care/Home Management,Soft Tissue Mobilization,Taping, Therapeutic Activities, Therapeutic Exercises Modalities Cold Pack/Ice Massage,Hot Packs,Ultrasound Next Visit Focus/Plan Next Note Type Discharge Summary
--- NOTE | 2021-03-07 13:01 | PT.OTN ---
Current Diagnoses Pain in right shoulder (03/07/21) Physical Therapy Treatment Note PT-OP-A Visit Information Start: 01/06/21 16:14 Freq: Status: Active Protocol: Document 03/07/21 12:16 MB (Rec: 03/07/21 12:38 MB [id number]) Out-Patient Physical Therapy Visit Information Visit Information Visit Type Treatment Note Visit Note [facility] 25 visits per year Visit Start Time 12:14 Visit Stop Time 12:59 Total Visit Minutes 45 Visit Number 12 Number of MAXILLOFACIAL SURGEON Visits 0 Evaluation Information Evaluation Date 01/10/21 PT-OP-B Current Condition Start: 01/06/21 16:14 Freq: Status: Active Protocol: Document 01/10/21 13:05 MB (Rec: 01/10/21 13:15 MB [id number]) Current Condition History of Current Condition Onset Date May 2020 Current Complaints Pain in right shoulder with some movements and pain with sleeping History of Current Condition In May, pt reached back to do something with the dog who was in the 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 He has had progressive decreasing ROM in his right shoulder as well as some decreasing strength. He is right-handed. He is favoring the arm. He is taking oral pain medication as prescribed by the doctor and using Voltaren at morning and at night. He has pain with reaching behind and up over his head. He points to right AC joint. He cannot sleep on his right side. He is sleeping on his back and left side. Pt rates pain as 4+/10 in his right shoulder. Pt has a history of torn meniscus right knee and surgery 10 years ago. He had PT for back pain 10 years ago. Pt reports two episodes of pain in his right elbow since the injury. He denies numbness and tingling. Treatment Goals Patient/Caregiver Goals To decrease pain and to improve right arm use and ROM PT-OP-C Subjective Start: 01/06/21 16:14 Freq: Status: Active Protocol: Document 03/07/21 12:16 MB (Rec: 03/07/21 12:38 MB [id number]) OP-PT Subjective Patient Comments Patient Comments It took several days to recover from the behind the back infraspinatus/IR work. He leaves for [place] for a few months. PT-OP-J Posture/Palpation/Skin Start: 01/06/21 16:14 Freq: Status: Active Protocol: Document 01/10/21 13:05 MB (Rec: 01/10/21 15:45 MB [id number]) Posture Evaluation Comments Posture Comments Standing posture with shoes on : forward head, cervical extension position in standing , Dowager's hump, elevated shoulders, decreased thoracic kyphosis, left shoulder higher than the right and left SC joint also higher than the right, right scapula lower than the left, increased varus LEs, iliac crests grossly level. PT-OP-K Range of Motion Start: 01/06/21 16:14 Freq: Status: Active Protocol: Document 01/10/21 13:05 MB (Rec: 01/10/21 15:45 MB [id number]) Cervical Spine Range of Motion Cervical Spine Active Testing Position Standing Flexion 35 Extension 30 Rotation Left 60 Rotation Right 50 Lateral Flexion Left 20 Lateral Flexion Right 20 Shoulder Goniometric Range of Motion Shoulder Left Shoulder ROM WFL Yes Testing Position Standing Flexion 140 Extension 61 Abduction 155 Internal Rotation Behind Back (text) To T5 Comments PROM in supine with left shoulder in 90/90: limited ER to 80 deg and IR to 50 deg at least Right Shoulder ROM WFL No Testing Position Standing Flexion 130 Extension 54 Abduction 140 Internal Rotation Behind Back (text) To S1 Comments PROM in supine with right shoulder in 80 deg abduction, pt states, stop before PT can reach end-feel end-range for ER and IR and ER is 30 deg and IR is 25 deg PT-OP-M Strength Start: 01/06/21 16:14 Freq: Status: Active Protocol: Document 01/10/21 13:05 MB (Rec: 01/10/21 15:45 MB [id number]) Shoulder Strength Shoulder Manual Muscle Testing Left Flexion 5 Normal Abduction (C5) 5 Normal External Rotation 5 Normal Internal Rotation 5 Normal Right Comments Painful and guarded AROM and so MMT right shoulder deferred Elbow/Forearm Strength Elbow and Forearm Manual Muscle Testing Bilateral Flexion (C6) 5 Normal Extension (C7) 5 Normal Pronation 5 Normal Supination 5 Normal PT-OP-Q Treatments Start: 01/06/21 16:14 Freq: Status: Active Protocol: Document 03/07/21 12:16 MB (Rec: 03/07/21 12:38 MB [id number]) Cardio Equipment Upper Body Ergometer (UBE) Duration (Minutes) 15 Other 1' forward and 1' backward Therapeutic Exercises Other Exercises HEP review Comments Verbally reviewed HEP in prep for d/c today Manual Therapy Treatment Other Other Manual Treatments Right shoulder [place] Protocol and right pect major STM and positional release PT-OP-T Assessment and Plan Start: 01/06/21 16:14 Freq: Status: Active Protocol: Document 03/07/21 12:16 MB (Rec: 03/07/21 12:38 MB [id number]) Physical Therapy Assessment Rehab Potential Rehabilitation Potential Good Evaluation Complexity Number of Personal Factors/Comorbidities 1-2 Number of Body Systems Impaired 1-2 Clinical Presentation at Evaluation Evolving Impairments Impairments Activity Tolerance,Functional Activities,Functional Mobility ,Pain,Posture,ROM,Soft Tissue Mobility,Strength Other Impairments Personal factors include guarding behavior during assessment. Body systems affected include musculoskeletal and neuromuscular. Goals 4 Penitentiary Goal (LTG) Pt will present with active right shoulder IR to at least T8 to improve donning and doffiing of jacket by 03/12/21. 03/07/21: Right shoulder IR is to about T10 today 02/09/21: Right shoulder IR is to about T9 today LTG Duration Partially met 3 Penitentiary Goal (LTG) Pt will present with AROM right shoulder flexion and abduction similiar to the left to improve reaching overhead by 03/12/21. 03/07/21: AROM standing: flexion right 148 deg, left 149 deg; abduction B 165 deg 02/09/21: Right shoulder flexion to 138 deg and left 150 deg in standing; abduction : right shoulder abduction to 165 deg and left shoulder abduction to 162 abduction. Pt states that he ranges right arm to the pain limit LTG Duration Met 2 Penitentiary Goal (LTG) Pt will perform progressive HEP with I including range of motion, postural exercises, self-massage, breathing, flexibility and strengthening exercises to decrease pain and improve right arm function by 03/12/21. 03/07/21: Pt is performing all range of motion, foam roller and strengthening exercises. He is alternating exercises. He discontinued IR with the band behind the back. 02/09/21: Pt states that all his exercises are helpful except the downward dog because of leg limitation LTG Duration Met 1 Impairment QuickDASH score reflects 34.09 % impairment Bonbon Dipper Goal (LTG) Pt will present with an improved QuickDASH score to reflect no more than 10% impairment to improve function and quality of life by . 03/07/21: QuickDASH score reflects 11.36% impairment. He had a mild flare-up with IR behind back last treatment date 02/09/21: QuickDASH score reflects 18.18% impairment, which is an improvement since the evaluation LTG Duration Partially met Assessment Summary Assessment Pt has progressed towards all goals since starting PT. He flared up with behind the back IR strengthening and PT does feel that he has an infraspinatus or subscap anatomical change. Overall, he is much better since starting PT. He is leaving for a three month trip out of state. Will d/c PT.
== END 2021-03-15 08:25 ==
LOC: PHYS 12:15
PROVIDERS: Family Provider Family Medicine; PCP Family Medicine; Referring Provider Family Medicine; Visit Provider Family Medicine
DX: M25.511 Pain in right shoulder (principal)
CPT/HCPCS: 97110; 97140; 97161; 97535